=== PATIENT | male | born 1985 | race Caucasian/White ===

== ENCOUNTER 2020-02-12 08:51 | Outpatient (CLI) | payer MEDICARE, OTHER, SELFPAY ==
[2020-02-12 10:06] LABS: Free T4 Free Thyroxine 1.33 ng/mL (0.78-2.19)
[2020-02-14 15:51] LABS: Testosterone Free 59.3 pg/mL (35.0-155.0); Testosterone Total 215 ng/dL (250-1100)
== END 2020-02-12 08:52 | disposition home or self-care (01) ==
PROVIDERS: PCP Family Medicine; Visit Provider Family Medicine
DX: E03.9 Hypothyroidism, unspecified (principal); R79.89 Other specified abnormal findings of blood chemistry
CPT/HCPCS: 36415; 84402; 84403; 84439; 84443

== ENCOUNTER 2020-06-14 14:49 | Outpatient (CLI) | payer MEDICARE, OTHER, SELFPAY ==
--- NOTE | ~2020-06-14 | MR_ITS ---
EXAMINATION: MR cervical spine wo con DATE: 06/14/2020 15:34 INDICATION: Neck pain. TECHNIQUE: Magnetic resonance imaging (MRI) of the cervical spine was performed without intravenous c ontrast. Sequences included sagittal T2-weighted FSE, sagittal STIR FSE, sagittal T1-weighted FSE, ax ial MERGE, and axial T2-weighted FSE. COMPARISON: None FINDINGS: There is mild kyphosis of cervical spine. There is 8 degrees dextrocurvature of cervicothor acic spine. Vertebral body heights are normal. Intervertebral disc heights are normal. The spinal cor d signal intensity is normal. The following disc levels are specifically discussed: C2-C3: The disc does not extend beyond the endplate margin. There is mild left uncovertebral joint os teoarthritis. There is mild bilateral facet joint osteoarthritis. There is mild left neural foraminal stenosis. There is no central canal stenosis. C3-C4: The disc does not extend beyond the endplate margin. There is mild bilateral uncovertebral julián nt osteoarthritis. There is mild bilateral facet joint osteoarthritis. There is mild bilateral neural foraminal stenosis. There is no central canal stenosis. C4-C5: The disc does not extend beyond the endplate margin. There is mild bilateral uncovertebral julián nt osteoarthritis. There is mild right and moderate left facet joint osteoarthritis. There is mild bi lateral neural foraminal stenosis. There is no central canal stenosis. C5-C6: The disc does not extend beyond the endplate margin. There is mild bilateral uncovertebral julián nt osteoarthritis. There is mild bilateral facet joint osteoarthritis. There is no neural foraminal s tenosis. There is no central canal stenosis. C6-C7: There is a central protrusion. There is mild bilateral uncovertebral joint osteoarthritis. The re is mild right and moderate left facet joint osteoarthritis. There is mild bilateral neural foramin al stenosis. There is mild central canal stenosis. C7-T1: The disc does not extend beyond the endplate margin. There is mild bilateral uncovertebral julián nt osteoarthritis. There is moderate bilateral facet joint osteoarthritis. There is mild right neural foraminal stenosis. There is no central canal stenosis. IMPRESSION: 1. Mild cervical spondylosis. Reviewed, dictated and finalized at location A.
== END 2020-06-14 14:50 | disposition home or self-care (01) ==
PROVIDERS: PCP Family Medicine; Visit Provider Nurse Practitioner Family
DX: M25.519 Pain in unspecified shoulder (principal); R20.0 Anesthesia of skin; M47.892 Other spondylosis, cervical region
CPT/HCPCS: 72141

== ENCOUNTER 2022-05-11 08:59 | Outpatient (CLI) | payer MEDICARE, OTHER, SELFPAY ==
[2022-05-11 09:17] LABS: Hematocrit 48.2 % (42.0-52.0); Hemoglobin 15.8 g/dL (14.0-18.0); Mean Corpuscular HGB Conc 32.8 g/dl (32-36); Mean Corpuscular Hemoglobin 26.9 pg (26-34); Mean Corpuscular Volume 82.1 fl (80-100); Mean Platelet Volume 9.7 fl (7.4-10.4); Platelet Count Result 219 k/mm3 (150-375); Red Blood Count 5.87 M/mm3 (4.6-6.20); Red Cell Distribution Width 16.7 % (11.5-14.5); White Blood Count 8.8 K/mm3 (4.5-10.0)
[2022-05-11 09:40] LABS: Anion Gap 9 mmol/L (8-16); Blood Urea Nitrogen 22 mg/dL (9-20); Calcium 9.6 mg/dL (8.4-10.2); Carbon Dioxide 30 mmol/L (22-30); Chloride 101 mmol/L (98-107); Estimated Glomerular Filt Rate > 60; Glucose 89 mg/dL (65-110); Potassium 4.9 mmol/L (3.4-5.0); Sodium 140 mmol/L (137-145)
[2022-05-11 10:25] LABS: Free T4 Free Thyroxine 0.92 ng/mL (0.78-2.19)
[2022-05-15 16:17] LABS: Testosterone Free 128.3 pg/mL (35.0-155.0); Testosterone Total 668 ng/dL (250-1100)
== END 2022-05-11 09:00 | disposition home or self-care (01) ==
LOC: ANHLAB 09:01
PROVIDERS: PCP Family Medicine; Visit Provider Family Medicine
DX: F90.0 Attention-deficit hyperactivity disorder, predominantly inattentive type (principal); R79.89 Other specified abnormal findings of blood chemistry; E03.9 Hypothyroidism, unspecified
CPT/HCPCS: 36415; 80048; 84402; 84403; 84439; 84443; 85027

== ENCOUNTER 2024-10-30 09:27 | Outpatient (CLI) | payer OTHER, SELFPAY ==
--- OUTSIDE RECORDS SUMMARY | 2024-10-30 09:46 | XMS_ITS | Encounter Summary ---
Author Organization [facility] Address 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 [address] PCP - General Family Practice 07/08/20 documented as of this encounter
--- OUTSIDE RECORDS SUMMARY | 2024-10-30 09:46 | XMS_ITS | Clinical Summary ---
Author Organization [facility] Address [address] [place] [address] Care Team Providers Care Cable Systems Installer Name Role Phone Brain Roach MD Primary Care Provider [phone] Allergies Active Allergy Reactions Criticality Noted Date Comments Gabapentin Rash Low 01/25/2017 Medications testosterone (ANDROGEL) 20.25 mg/1.25 gram (1.62 %) Gel in Metered-dose Pump BRISSA 1 PUMP OVER MAX AREA OF EACH UPPER ARM AND SHOULDER D 08/06/2020 Active levothyroxine 150 mcg tablet TK 1 T PO D 06/28/2020 Ac tive amphetamine-dex troamphetamine (ADDERALL XR) 20 mg Extended Release 24 hour capsule TK 1 C PO D 08/15/2020 Active acetaminophen (TYLENOL ORAL) Take by mouth. Active IBUPROFEN ORAL Take by mouth. Active MULTIVITAMIN ORAL Take by mouth. Active Active Problems Problem Noted Date Diagnosed Date Cervical disc disease 08/30/2020 Kyphosis 08/30/2020 Encounters Date Type Department Care Team Description 10/08/2024 External Device Data [facility] ABSTRACTION Provider, Abstract from Last 3 Months Family History Medical History Relation Name Comments Healthy Father Healthy Mother Relation Name Status Comments Father Alive Mother Alive Social History Tobacco Use Types Packs/Day Years Used Date Smoking Tobacco: Never Alcohol Use Standard Drinks/Week Comments Never 0 (1 standard drink = 0.6 oz pur e alcohol) Sex and Gender Information Value Date Recorded Sex Assigned at Not on file 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 Gender Identity Not on file Sexual Orientation Not on file Last Filed Vital Signs Vital Sign Reading Time Taken Comments Blood Pressure - - Pulse - - Temperature - - Respiratory Rate - - Oxygen Saturation - - Inhaled Oxygen Concentration - - Weight 120.2 kg (265 lb) 08/30/2020 3:07 PM SCHEDULE MANAGER Height 185.4 cm (6' 1 ) 08/30/2020 3:07 PM SCHEDULE MANAGER Body Mass Index 34.96 08/30/2020 3:07 PM SCHEDULE MANAGER Plan of Treatment Health Maintenance Due Date Last Done Comments INFLUENZA VACCINE (#1) 2024 2, 08/09/2011, 10/17/2007 DTAP/TDAP/TD VACCINES (3 - T d or Tdap) 12/17/2025 12/18/2015, 10/09/2012 HEPATITIS B VACCINES Completed 07/03/2009, 08/04/2008, 03/26/2004 HPV VACCINES Aged Out No longer eligi ble based on patient's age to complete this topic PNEUMOCOCCAL VACCINE 0-64 YEARS Aged Out No longer eligible b ased on patient's age to complete this topic Insurance MEDICARE PART A AND B [facility] Care Teams Cable Systems Installer Relationship Specialty Start Date End Date Brain Roach MD [address] [place] [address] PCP - General Family Practice 07/08/20
--- OUTSIDE RECORDS SUMMARY | 2024-10-30 09:46 | XMS_ITS | Continuity of Care Document ---
Author Name [facility] Organization [facility] Care Team Providers Care Carboy Filler Name Role Phone [facility] Unavailable Unavailable Problems Combined list of problems from Department of Defense and [facility] Affairs facilities. It does not include entries that were removed or entered in error. Problem Status Onset Date Problem Type Date of Resolution Comments Source Vitamin D deficiency Active 016 Condition [facility] Seizure disorder Active 012 Condition [facility] Traumatic brain injury Active 012 Condition [facility] Allergic rhinitis Active Condition [facility] At risk for psychosocial dysfunction Active Condition Jul 26, 2015 Entered By: LETI CALVO Comment: Telephone Call Veterans Crisis Line [facility] Cervicalgia Active Condition [facility] Chronic back pain Active Condition [facility] Chronic low back pain Active Condition [facility] Chronic post-traumatic stress disorder Active Condition [facility] Deep laceration of foot Active Condition [facility] DISABILITY EXAMINATION Active Condition [facility] Erectile dysfunction Active Condition [facility] Erectile Dysfunction (SCT [id number]) Active Condition [facility] Gynecomastia Active Condition [facility] Gynecomastia Active Condition Jun 02, 2017 Entered By: MAHAMED ALBERTO I Comment: Per Mammogram 2017 Entered By: JOSE MACKEY Comment: 11/08/17 biopsy confirmation [facility] Headache Active Condition [facility] History of alcohol abuse Active Condition [facility] History of traumatic brain injury Active Condition [facility] Homeless Active Condition [facility] Hypothyroidism Active Condition [facility] Insomnia Active Condition [facility] Laceration of ankle Active Condition [facility] 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 Nausea Active Condition [facility] Obstructive sleep apnea syndrome Active Condition Feb 18, 2016 Entered By: DANE HENRY Comment: [id number] H2O Medium Full Face [facility] Recurrent major depressive episodes Active Condition [facility] Relationship distress with spouse or intimate partner Active Condition [facility] Seizure Active Condition [facility] Sleep Apnea (SCT [id number]) Active Condition [facility] Suicidal behavior Active Condition No v 2014 Entered By: LETI CALVO Comment: SDV Via Overdose [facility] Vitamin D deficiency Active Condition [facility] Alcohol dependence Inactive Condition 05/08/2016 [facility] Breast enlargement Inactive Condition 06/02/2017 Jun 02, 2017 Entered By: MAHAMED ALBERTO I Comment: per mamogram Gynomastia 2016 [facility] Cocaine dependence Inactive Condition 05/08/2016 [facility] visit for: services physical Active Condition DoD shoulder strain right Active Condition DoD Other Physical Therapy Active Condition DoD joint pain, localized in the shoulder Active Condition DoD shoulder separation closed acromioclavicular joint Active Condition DoD upper respiratory infection acute Active Condition DoD visit for: screening exam Inactive Condition DoD Need For Prophylactic Antibiotics Active Condition DoD visit for: screening exam pulmonary tuberculosis Active Condition DoD Need For Vaccination Against Influenza Inactive Condition DoD visit for: laboratory Active Condition DoD Need For Vaccination Against Bacterial Diseases Active Condition DoD Need For Vaccination Against DTP Active Condition DoD Need For Vaccination Polio Active Condition DoD visit for: ears / hearing exam Active Condition DoD osteopenia Active Condition Previous goals not metShort Term Goals: Decrease pain to 4/10 with rest x2wks Rule out SPR stress fracture on L with bone scan [id number] Term Goals:RTD x4-6 wks if bone scan negative DoD visit for: screening mental / developmental disorders Inactive Condition DoD chronic pain Active Condition DoD chronic post-traumatic stress disorder Active Condition DoD difficulty breathing (dyspnea) Active Condition Do[facility] Administrative Evaluation Services Inactive Condition DoD Patient Education - Neurological Disorder Active Condition DoD Patient Education - Medication Active Condition DoD visit for: physical medical evaluation board (MEB) Active Condition DoD noncompliance with medical treatment Active Condition DoD adjustment disorder with anxiety Active Condition DoD obesity Active Condition DoD upper respiratory infection Inactive Condition DoD somatic dysfunction of cervical region Active Condition DoD medication overuse headache Active Condition DoD tension-type headache Inactive Condition DoD classic migraine with aura Active Condition DoD overweight Active Condition DoD plantar fasciitis Active Condition DoD anxiety Active Condition DoD nonorganic sleep apnea obstructive Active Condition DoD depression Active Condition DoD alcohol abuse Active Condition DoD visit for: services physical marmolejo-related illness Active Condition DoD nonorganic sleep apnea Active Condition DoD headache syndromes Active Condition DoD psychiatric diagnosis or condition deferred on axis I Active Condition DoD acute peripheral vestibulopathy Active Condition DoD Blood Pressure Isolated Elevated Active Condition DoD depression with anxiety Active Condition DoD vertigo of central origin Active Condition DoD common migraine without aura chronic with intractable migraine Active Condition DoD persistent insomnia Active Condition Do D post-traumatic headache chronic Active Condition DoD routine pre-employment screening examination Active Condition DoD primary insomnia Active Condition DoD adjustment disorder Active Condition Do D anxiety disorder NOS Active Condition DoD headache Inactive Condition DoD assessment of patient condition work status Active Condition DoD Back Muscle Spasm Inactive Condition DoD visit for: issue medical certificate Inactive Condition DoD convulsive disorder Inactive Condition D oD convulsions [as sx] Active Condition Do D ringing in the ears (tinnitus) Active Condition DoD insomnia Active Condition DoD gastroenteritis Inactive Condition DoD visit for: screening exam neurological disorders Inactive Condition DoD visit for: examination of subpopulation Active Condition DoD visit for: screening exam traumatic brain injury Active Condition DoD conditions influencing health status Active Condition DoD migraine headache Active Condition DoD concussion Inactive Condition DoD lower back pain Active Condition DoD classic migraine with acute-onset aura Inactive Condition DoD Occupational Therapy Active Condition DoD visit for: services physical marmolejo-related injury Active Condition DoD aphthous ulcer Active Condition DoD visit for: follow-up exam Active Condition DoD Patient Education - Computer-Assisted Cognitive Skills Prog Active Condition DoD Cognitive Functions Inactive Condition D oD Cognitive Skills - Memory Strategies Active Condition DoD Speech Therapy Active Condition DoD Opticokinetic Nystagmus Absent Active Condition DoD eye sensitivity to light (photophobia) Inactive Condition DoD binocular vision disorder Active Condition DoD paresis of accommodation Active Condition DoD assess patient condition work-related occupational disease Active Condition DoD memory lapses or loss Active Condition DoD no psychiatric diagnosis or condition on axis I Inactive Condition DoD gaze convergence palsy Active Condition DoD brain injury traumatic Active Condition DoD Observation For Suspected Condition Inactive Condition DoD transient alteration of awareness Active Condition DoD Brace Inactive Condition DoD Patient Counseling: Inquiry & Counseling Active Condition DoD epilepsy and recurrent seizures Inactive Condition DoD lumbago Active Condition DoD intervertebral disc degeneration - lumbar Active Condition DoD backache Active Condition DoD visit for: screening exam depression Inactive Condition DoD poor coordination [Sx] Active Condition DoD vertigo Inactive Condition DoD cervicalgia Active Condition DoD dizziness Inactive Condition DoD late effect of intracranial injury Active Condition DoD post-traumatic headache Active Condition DoD concussion with brief loss of consciousness (under 1 hour) Inactive Condition DoD other specified family circumstances Active Condition DoD visit for: occupational health / fitness exam Active Condition DoD adhesive capsulitis of shoulder Active Condition DoD shoulder strain supraspinatus tendon right Active Condition [facility] visit for: administrative purpose Inactive Condition DoD assessment of patient condition work-related Active Condition DoD fainting (syncope) Inactive Condition Do D hypertrophy of breast Inactive Condition DoD patient's noncompliance with therapy Active Condition DoD visit for: screening exam cardiovascular disorders Active Condition EKG within normal limits DoD Medications Combined list of outpatient medications from 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Medications provided include 1) outpatient medications from the last 15 months, and 2) patient-reported medications. Medication Details Route Status Patient Instructions Prescription Expires Prescription Number Last Dispense Date Ordering Provider Order Date Order Qty Source AMPHETAMINE /DEXTROAMPH ETAMINE 20MG TAB TAKE ONE TABLET BY MOUTH EVERY MORNING ORAL ACTIVE LUCERO,AN EELA 2020 [facility] LEVOTHYROXI NE TAB TAKE ACTIVE KRISTINE GALLAGHER [address] [place] [address] TESTOSTERON E GEL,TOP APPLY TO AFFECTED AREA(S) EVERY MORNING TOPICA L ACTIVE LUCERO,AN EELA 2020 [facility] Allergies, Adverse Reactions, Alerts Combined list of allergies from 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 It does not include entries that were removed or entered in error. Substance Category Reaction Severity Reaction type Status Date Reported Comments Source GABAPENTIN Propensity to adverse reactions to drug (finding) active 6 Zenia OCASIO [facility] Gabapentin Drug allergy (disorder) Cramp active 6 [facility] GABAPENTIN Propensity to adverse reactions to drug (finding) Cramp active 6 [facility] GABAPENTIN Propensity to adverse reactions to drug (finding) Eruption active 7 [facility] GABAPENTIN (GABAPENTIN) Drug allergy (disorder) Unknown active 1 [facility] Immunizations Combined list of available immunizations from the 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 Comments Source COVID-19 (PFIZER), MRNA, LNP-S, PF, 30 MCG/0.3 ML DOSE 2 2020 208 complet ed PFR; [id number]; 1 [facility] COVID-19 (PFIZER), MRNA, LNP-S, PF, 30 MCG/0.3 ML DOSE 1 2020 208 complet ed PFR; [id number]; 1 [facility] INFLUENZA, UNSPECIFIED FORMULATION 2018 88 complet ed per patient [facility] INFLUENZA, UNSPECIFIED FORMULATION 2016 88 complet ed [facility] TDAP 2015 115 complet ed [facility] tetanus toxoid, reduced diphtheria toxoid, and acellular pertu is vaccine, adsorbed 1 2012 UNK 115 Unknown (UNK) comple t ed tetanus toxoid, reduced diphtheri a toxoid, and acellular pertussis vaccine, adsorbed DoD Influenza, seasonal, injectable 1 2011 UNK 141 Unknown (UNK) comple t ed Influenza , seasonal, injectabl e DoD typhoid Vi capsular polysaccharid e vaccine 1 2010 UNK 101 Unknown (UNK) comple t ed typhoid Vi capsular polysacch aride vaccine DoD Influenza, seasonal, injectable 1 2010 UNK 141 Unknown (UNK) comple t ed Influenza , seasonal, injectabl e DoD Novel influenza-H1N 1-09, injectable 1 2009 UNK 127 Unknown (UNK) comple t ed Novel influenza -[id number], injectabl e DoD anthrax vaccine 4 2008 [id number] [facility] complet ed anthrax vaccine DoD hepatitis B vaccine, adult dosage 3 2008 UNK 43 Unknown (UNK) comple t ed hepatitis B vaccine, adult dosage DoD hepatitis A vaccine, adult dosage 3 2008 UNK 52 Unknown (UNK) comple t ed hepatitis A vaccine, adult dosage DoD influenza virus vaccine, unspecified formulation 1 2008 UNK 88 Unknown (UNK) comple t ed influenza virus vaccine, unspecifi ed formulati on DoD vaccinia (smallpox) vaccine 1 2007 UNK 75 Unknown (UNK) comple t ed vaccinia (smallpox ) vaccine DoD typhoid Vi capsular polysaccharid e vaccine 1 2007 UNK 101 Unknown (UNK) comple t ed typhoid Vi capsular polysacch aride vaccine DoD hepatitis A and hepatitis B vaccine 2 2007 UNK 104 Unknown (UNK) comple t ed hepatitis A and hepatitis B vaccine DoD anthrax vaccine 3 2007 UNK 24 [employer] [place] ([facility]) complet ed anthrax vaccine DoD influenza virus vaccine, live, attenuated, for intranasal use 1 2007 [id number] Sanofi Pasteur (PMC) complet ed influenza virus vaccine, live, attenuate d, for intranasa l use DoD measles, mumps and rubella virus vaccine 1 2003 [id number] Merck (MSD) complet ed measles, mumps and rubella virus vaccine DoD tetanus and diphtheria toxoids, adsorbed, preservative free, for adult use (2 Lf of tetanus toxoid and 2 Lf of diphtheria toxoid) 1 2003 [id number] Sanofi Pasteur ([facility]) complet ed tetanus and diphtheri a toxoids, adsorbed, preservat bennett free, for adult use (2 Lf of tetanus toxoid and 2 Lf of diphtheri a toxoid) DoD poliovirus vaccine, inactivated 1 2003 [id number] 10 Sanofi Pasteur ([facility]) complet ed polioviru s vaccine, inactivat ed DoD meningococcal polysaccharid e vaccine (MPSV4) 1 2003 [id number] Unknown (UNK) comple t ed meningoco ccal polysacch aride vaccine (MPSV4) DoD hepatitis A and hepatitis B vaccine 1 2003 [id number] Unknown (UNK) complet ed hepatitis A and hepatitis B vaccine DoD anthrax vaccine 2 2003 UNK 24 [employer] [place] ([facility]) complet ed anthrax vaccine DoD anthrax vaccine 1 2003 UNK 24 [employer] ([facility]) complet ed anthrax vaccine DoD Encounters Combined list of: 1) Encounters from Department of Veterans Affairs facilities going backup to the last 18 months, not all VA inpatient encounters are included; 2) Encounters from the Department of Defense facilities going backup to 280 months. Location Location Details Encounter Type Encounter Number Reason For Visit Attending Provider ADM Date DC Date Status Disposition Source Harpalkeenan Lopez LeonLUIS FELIPE Browning(Physic al Therapy [facility]) OUTPATIENT [id number] Follow up for L>R IPR stress rxns (r/o stress fx) DELFIN TORREZ 06/22 Released with Work/Duty Limitations LUIS FELIPE Alvarado(Phys ical Therapy [facility]) [place]) OUTPATIENT [id number] hearing test ZACHARIAH NASSAR 10/14 Released w/o Limitations [place] ) [place]IENT [id number] AMANDO GIBBONS 10/17 Released w/o Limitations [place]) OUTPATIENT [id number] cough, congest ion, sore throat CHARLES MARLOW 10/25 Released with Work/Duty Limitations [place]) [place] OUTPATIENT [id number] coughin g up blood, r. shoulde r HARESH SantanaINALJorge Suazo 11/07 Released with Work/Duty Limitations [place]) [place] OUTPATIENT [id number] F/U shoulde r pain HARESH MARLOWINALD J 11/14 Released with Work/Duty Limitations [place]([facility]) [place]Physic [place]) OUTPATIENT [id number] JUDE Monroe 11/17 Released w/o Limitations [place]Phys ical [place]) OUTPATIENT [id number] R Shoulde r NICANOR Singh 11/19 Released with Work/Duty Limitations [place]Phys ical [place]) OUTPATIENT [id number] R Shoulde r class NICANOR WILCOX R 11/24 Released with Work/Duty Limitations [place]Phys ical [place] ) [place]) OUTPATIENT [id number] Exercis e R Shoulde r BRENDEN NICANOR R 11/26 Released with Work/Duty Limitations [place]Phys ical [place] ([facility])) OUTPATIENT [id number] FELL INJURY TO RIGHT MELINA HENLEY 11/26 Released with Work/Duty Limitations [place] ([facility])) [place]Physic [place]) OUTPATIENT [id number] R JUDE Moreno 11/27 Released w/o Limitations [place](Phys ical [place] ) [place]Phys[place]) OUTPATIENT [id number] LEE HYDE 12/01 Released with Work/Duty Limitations [place]Phys ical [place]) OUTPATIENT [id number] Exercis e R SHoulde r NICANOR WILCOX R 12/02 Released with Work/Duty Limitations [place](Phys ical [place] ) [place]) OUTPATIENT [id number] Exercis e R Shoulde r BRENDEN NICANOR R 12/03 Released with Work/Duty Limitations [place](Phys ical Therapy ) [place]) OUTPATIENT [id number] 18X and LILLY Davila 12/04 Released w/o Limitations [place]([facility]) [place]Physic [place] Therapy) OUTPATIENT [id number] Exercis e r Shoulde r [facility] 12/08 Released w/o Limitations [facility], John Karan , [place]IG[place](Phys ical Therapy ) John Alfredo, PAIGE(Anthropology Department Chair al Med Angel) OUTPATIENT [id number] BEULAH Galarza Katrin 12/08 Released w/o Limitations [facility], [place] Russo , [place](Inte rnal Med [place]) John Alfredoning, [place](Physic al Therapy) OUTPATIENT [id number] Exercis e R NICANOR Velasquez 12/10 Released with Work/Duty Limitations [facility], John Russo , [place](Phys ical Therapy ) [facility] Karan, [place](Physic al Therapy) OUTPATIENT [id number] f/u JUDE Moreno 12/15 Released w/o Limitations [facility], John Russo , [place](Phys ical Therapy ) [facility], [place](Physic al Therapy) OUTPATIENT [id number] LEE HYDE 12/24 Released with Work/Duty Limitations [facility] , [place](Phys ical Therapy ) [facility], [place](Physic al Therapy) OUTPATIENT [id number] R JUDE Moreno 02/02 Released w/o Limitations [facility] , [place](Phys ical Therapy ) John Alfredo, [place](C-7) OUTPATIENT [id number] 18 X PART II CHARLES MARLOW 02/02 Released w/o Limitations [facility] , [place]([facility]) [facility], [place]([facility]) OUTPATIENT [id number] 2ND PART SF PHYSICA L KASHMIR CHARLES J 02/12 Released w/o Limitations [facility] , [place](C- 7) [employer] ([facility] M[facility]D RH [facility]ou) OUTPATIENT [id number] right shoulde r GERARDO Magallanes 06/18 Released with Work/Duty Limitations [employer] ([facility])(AM H M04D RH Fou) [employer] ([facility])([facility], Physical Therapy) TELE CONSULT [id number] no-show NINOSKA FOLEY 07/16 [employer] ([facility])([facility], Physica l Therapy ) Theater Facility OUTPATIENT [id number] 11/21 Released w/o Limitations Theater Facilit y Theater Facility OUTPATIENT [id number] 05/21 Released w/o Limitations Theater Facilit y [employer] ([facility] OUTPATIENT [id number] negativ e screen EULA ROBERTSONKEKE Bravo 08/03 Released w/o Limitations [employer] ([facility])([facility] [employer] ([facility])([address]) OUTPATIENT [id number] Right shoulde r injury/ pain SUBHASH STANTON Gurpreet 08/26 Released with Work/Duty Limitations [employer] ([facility])(AM [address]) [employer] ([facility])([facility] ly Medicine T-Con) TELE CONSULT [id number] MRI results FARZANEH WILSON 09/27 [employer] ([facility])( popeye Medicin e T-Con) [employer] ([facility])([address]) TELE CONSULT [id number] [facility] e Line-MR I results SUBHASH STANTON 09/27 [employer] ([facility])(AM H [address]) [employer] ([facility])([address]) OUTPATIENT [id number] R/ SHOULDE R INJURY MARLENA SEVILLA H 09/28 Released w/o Limitations [employer] ([facility])([facility] [address]) [employer] ([facility])([facility] Sports Medicine) OUTPATIENT [id number] SHOULDE R SPRAIN SUPRASP INATUS TENDON RIGHT ROSENDO GOLDEN 10/12 Released w/o Limitations [employer] ([facility])([facility] Sports Medicin e) [employer] ([facility])(Phys Therapy) OUTPATIENT [id number] TASHIA BROWNE 10/20 Released with Work/Duty Limitations [employer] ([facility])(Ph ys Therapy ) [employer] ([facility])([facility], Physical Therapy) OUTPATIENT [id number] BELIA FITZPATRICK 10/25 Released with Work/Duty Limitations [employer] ([facility])([facility], Physica l Therapy ) [employer] ([facility])([facility], Physical Therapy) TELE CONSULT [id number] noncomp liance with physica l therapy EFRAÍN CHAVEZ 10/27 [employer] ([facility])([facility], Physica l Therapy ) [employer] ([facility])([facility], Physical Therapy) OUTPATIENT [id number] EFRAÍN CHAVEZ 11/02 Released with Work/Duty Limitations [employer] ([facility])([facility], Physica l Therapy ) [employer] ([facility])([facility], Physical Therapy) OUTPATIENT [id number] BELIA FITZPATRICK 11/05 Released with Work/Duty Limitations [employer] ([facility])([facility], Physica l Therapy ) [employer] ([facility])([facility], Physical Therapy) OUTPATIENT [id number] LENIN JAQUEZ 11/08 Released with Work/Duty Limitations [employer] ([facility])([facility], Physica l Therapy ) [employer] ([facility])([facility] [address]) OUTPATIENT [id number] ABELINO Krueger 11/09 Released w/o Limitations [employer] ([facility])(He aring [facility] [address]) [employer] ([facility])([facility], Physical Therapy) OUTPATIENT [id number] EFRAÍN CHAVEZ 11/10 Released with Work/Duty Limitations [employer] ([facility])([facility], Physica l Therapy ) [employer] ([facility])([facility] Sports Medicine) OUTPATIENT [id number] F/U ROSENDO GOLDEN 11/23 Released w/o Limitations [employer] ([facility])([facility] Sports Medicin e) [employer] ([facility])([facility], Physical Therapy) TELE CONSULT [id number] No show BAI TERESA 12/14 [employer] ([facility])([facility], Physica l Therapy ) [employer] ([facility])([facility], Physical Therapy) OUTPATIENT [id number] Shoulde ABI Mendez 12/21 Released w/o Limitations [employer] [facility] ([facility])([facility], Physica l Therapy ) [facility] ([facility])([facility], Physical Therapy) OUTPATIENT [id number] KAMRONAB LENIN JAQUEZ 12/22 Released with Work/Duty Limitations [employer] ([facility])([facility], Physica l Therapy ) [place] ([facility])([facility], Physical Therapy) OUTPATIENT [id number] EFRAÍN CHAVEZ 12/23 Released with Work/Duty Limitations [place] ([facility])([facility], Physica l Therapy ) [place] ([facility])([facility], Physical Therapy) OUTPATIENT [id number] EFRAÍN CHAVEZ 12/28 Released with Work/Duty Limitations [place] ([facility])([facility], Physica l Therapy ) [place] ([facility])([facility], Physical Therapy) TELE CONSULT [id number] noncomp liance with physica l therapy EFRAÍN CHAVEZ 12/30 [place] ([facility])([facility], Physica l Therapy ) [place] ([facility])([facility], Physical Therapy) TELE CONSULT [id number] CATHY Moeller 12/31 [place] ([facility])([facility], Physica l Therapy ) [place] ([facility])(Phys Exam) OUTPATIENT [id number] THANIA Valadez 01/04 Released w/o Limitations [place] ([facility])(Ph ys Exam) [place] ([facility])(Opto metry) OUTPATIENT [id number] EL CASEYESPERANZA ROSS 01/04 Released w/o Limitations [place] ([facility])(Op tometry ) [place] ([facility])([facility]) TELE CONSULT [id number] Schedul e a FAP appt PEDRO ESPERANZA M 06/28 Referred for Appointment [place] ([facility])(Fa m Advoc-[facility]) [place] ([facility])(Conc ussion Care Clinic) OUTPATIENT [id number] angela-co ALIYAH Eugene 06/22 Sick at Home/Quarter s [place] ([facility])(Co ncuss n Care Clinic) [place] ([facility])([facility] ussion Care Clinic) OUTPATIENT [id number] f/u per LCDR ALIYAH Arreguin 06/27 Sick at Home/Quarter s [place] ([facility])(Co ncuss n Care Clinic) [place] ([facility])([facility] ussion Care Clinic) OUTPATIENT [id number] f/u tbi a ALIYAH DOMÍNGUEZ 06/29 Released with Work/Duty Limitations [place] ([facility])(Co ncussio n Care Clinic) [place] ([facility])(Neur o-Rehab Physical Therapy) OUTPATIENT [id number] SWATHI Valenzuela 06/29 Released with Work/Duty Limitations [place] ([facility])(Ne u[facility]-[place] [facility] Physica l Therapy ) [place] ([facility])(Neur o-Rehab Physical Therapy) OUTPATIENT [id number] f/u tbi p SWATHI DIAZ 07/03 Released with Work/Duty Limitations [place] ([facility])(Ne u[facility]-[place] [facility] Physica l Therapy ) [place] ([facility])([facility] M[facility]) OUTPATIENT [id number] referra l to pain managem RAFIA Haney 07/04 Released w/o Limitations [place] ([facility])([facility] M[facility] One) [place] ([facility])(Conc ussion Care Clinic) OUTPATIENT [id number] f/u tbi a ALIYAH DOMÍNGUEZ 07/10 Released with Work/Duty Limitations [place] ([facility])(Co ncussio n [facility]) [facility] ([facility])(Case Managemen t Non-GWOT) OUTPATIENT [id number] Case Managem ent NASH GEORGE 07/12 Released w/o Limitations [employer] ([facility])(Ca se Managem ent Non-GWO T) [place] ([facility])(Conc ussion Care Clinic) OUTPATIENT [id number] Medicat ion reactio n ALIYAH DOMÍNGUEZ 07/13 Released with Work/Duty Limitations [place] ([facility])(Co nyuss n [facility]) [place] ([facility])(Hear ing Cons [address]) OUTPATIENT [id number] annual VIKTORIYA BAI 07/14 Released w/o Limitations [employer] ([facility])(He aring Cons [address]) [place] ([facility])(Pain Managemen t) OUTPATIENT [id number] [place] BEULAH MARADIAGA PT 07/18 Released w/o Limitations [employer] ([facility])(Pa in Managem ent) [place] ([facility])([facility], Physical Therapy) OUTPATIENT [id number] BACKGABRIELA GOMEZ 07/19 Released with Work/Duty Limitations [place] ([facility])([facility], Physica l Therapy ) [place] ([facility])(Conc ussion [facility]) OUTPATIENT [id number] f/u tbi ALIYAH Mcgrath 07/19 Released w/o Limitations [place] ([facility])(Co ncuss n [facility]) [facility] DIRECT TO MTF FROM OTHER THAN ER OR APU [id number] KAVYA WATKINS 07/20 RETURNED TO [facility] ([facility])(Rebecca gency Room) OUTPATIENT [id number] RENE FLORES 07/20 Admitted [place] ([facility])(Em ergency Room) [place] ([facility])(Neur ology Clinic) INPATIENT [id number] EEG OSMANY MCMULLEN Gabriele 07/21 Inpatient- Still a Patient [facility] ([facility])(Ne urology Clinic) [place] ([facility])(Conc ussion [facility]) OUTPATIENT [id number] f/u tbi a ALIYAH ODMÍNGUEZ Shelly 07/24 Released with Work/Duty Limitations [employer] ([facility])(Co ncussio [facility]) [place] ([facility])(Intr epid Clinic) OUTPATIENT [id number] LUIS Gómez 07/25 Released w/o Limitations [place] ([facility])(In trepid Clinic) [place] ([facility])(Orth opedics) OUTPATIENT [id number] KLM/ 2 BEULAH BAUTISTA 07/25 Released w/o Limitations [place] ([facility])(Or thopedi cs) [place] ([facility])([facility], Physical Therapy) OUTPATIENT [id number] GABRIELA WOODS 08/01 Released with Work/Duty Limitations [place] ([facility])([facility], Physica l Therapy ) [place] ([facility])(Neur ology Clinic) OUTPATIENT [id number] f/u eeg OSMANY MCMULLEN 08/01 Released w/o Limitations [place] ([facility])(Ne urology Clinic) [place] ([facility])(Pain Managemen t) OUTPATIENT [id number] f/u BEULAH JAIME 08/01 Released w/o Limitations [place] ([facility])(Pa in Managem ent) [place] ([facility])(Neur o-Rehab Neuropsyc hology) OUTPATIENT [id number] SCAR Rojas 08/02 Released w/o Limitations [place] ([facility])(Ne u[facility]-[place] Neurops ycholog y) [place] ([facility])(Neur o-Rehab Occ Therapy) OUTPATIENT [id number] [facility] PETTY MARTINEZUEL 08/02 Released w/o Limitations [place] ([facility])(Ne u[facility]-[place] [facility] Occ Therapy ) [place] ([facility])(Neur o-Rehab Physical Therapy) OUTPATIENT [id number] SWATHI Lowe 08/02 Released with Work/Duty Limitations [place] ([facility])([facility] [facility] Physica l Therapy ) [facility] ([facility])(Case Managemen t Non-GWOT) OUTPATIENT [id number] [facility] TBI Clinin Multi D Meeting NASH GEORGE 08/09 Released w/o Limitations [place] ([facility])(Ca se Managem ent Non-GWO T) [place] ([facility])([facility] OUTPATIENT [id number] f/u tbi a [facility] f/u ALIYAH DOMÍNGUEZ 08/09 Released w/o Limitations [place] ([facility])([facility] [place] ([facility])([facility]3]) TELE CONSULT [id number] Patient called and has a few questio ns. Please call. ALIYAH DOMÍNGUEZ 08/14 [place] ([facility])([facility] [place] ([facility])(Neur o-Rehab Occ Therapy) OUTPATIENT [id number] f/u tbi o November,ISE A 08/15 Released w/o Limitations [place] ([facility])(Ne u[facility]-[place] [facility] Occ Therapy ) [place] ([facility])([facility], Physical Therapy) OUTPATIENT [id number] KRISTINE GABRIEL 08/15 Released w/o Limitations [place] ([facility])([facility], Physica l Therapy ) [place] ([facility])([facility], Physical Therapy) TELE CONSULT [id number] no show KRISTINE GABRIEL 08/18 Referred for Appointment [place] ([facility])([facility], Physica l Therapy ) [place] ([facility])(Pain Managemen t) OUTPATIENT [id number] INGRID L5-S1 BEULAH JAIME 08/18 Released w/o Limitations [place] ([facility])(Pa in Managem ent) [place] ([facility])(Neur o-Rehab Speech Pathology ) OUTPATIENT [id number] EDMOND Lozano 08/22 Released w/o Limitations [place] ([facility])(Ne u[facility]-[place] [facility] Speech Patholo gy) [place] ([facility])([facility], Physical Therapy) OUTPATIENT [id number] KRISTINE GABRIEL 08/22 Released w/o Limitations [place] ([facility])([facility], Physica l Therapy ) [place] ([facility])([facility], Physical Therapy) TELE CONSULT [id number] no KRISTINE Panchal 08/25 Referred for Appointment [place] ([facility])([facility], Physica l Therapy ) [place] ([facility])(Opto metry) OUTPATIENT [id number] TBI SANDEEP ATKINS 08/25 Released w/o Limitations [employer] ([facility])(Op tometry ) [place] ([facility])(Neur o-Rehab Speech Pathology ) OUTPATIENT [id number] f/u tbi s EDMOND GONG 09/04 Released w/o Limitations [place] ([facility])(Ne u[facility]-[place] [facility] Speech Patholo gy) [place] ([facility])(Case Managemen t Non-GWOT) OUTPATIENT [id number] [facility] TBI Clinic Multi D Meeting NASH GEORGE 09/05 Released w/o Limitations [place] ([facility])(Ca se Managem ent Non-GWO T) [place] ([facility])(Neur o-Rehab Speech Pathology ) OUTPATIENT [id number] f/u tbi s EDMOND GONG 09/07 Released w/o Limitations [place] ([facility])(Ne u[facility]-[place] [facility] Speech Patholo gy) [place] ([facility])(Case Managemen t Non-GWOT) OUTPATIENT [id number] Multi D Meeting JAMIE KOLBY M 09/13 Released w/o Limitations [place] ([facility])(Ca se Managem ent Non-GWO T) [place] ([facility])(Opto metry) OUTPATIENT [id number] TBI F/U SANDEEP ATKINS 09/14 Released w/o Limitations [place] ([facility])(Op tometry ) [facility] [place] ) OUTPATIENT [id number] mouth problem s CHASIDY MARTINEZ 10/05 Released w/o Limitations [facility] [place]([facility]) [place] ([facility])(Neur o-Rehab Occ Therapy) OUTPATIENT [id number] f/u tbi o BAKARI LEDBTETER A 10/19 Released w/o Limitations [place] ([facility])(Ne u[facility]-[place] [facility] Occ Therapy ) [place] ([facility])(Neur o-Rehab Occ Therapy) OUTPATIENT [id number] f/u tbi o November, A 10/26 Released w/o Limitations [place] ([facility])(Ne u[facility]-[place] [facility] Occ Therapy ) [place] ([facility])(Neur o-Rehab Occ Therapy) OUTPATIENT [id number] f/u tbi o November, A 11/02 Released w/o Limitations [place] ([facility])(Ne u[facility]-[place] [facility] Occ Therapy ) [place] ([facility])(Neur o-Rehab Occ Therapy) OUTPATIENT [id number] f/u tbi o November, A 11/09 Released w/o Limitations [place] ([facility])(Ne uro-[place] [facility] Occ Therapy ) [place] ([facility])(Case Managemen t Non-GWOT) OUTPATIENT [id number] CM NASH Ortiz Released w/o Limitations [employer] ([facility])(Ca se Managem ent Non-GWO T) Theater Facility OUTPATIENT [id number] 12/26 Released w/o Limitations Theater Fac[facility] y Theater Facility OUTPATIENT [id number] 01/17 Sick at Home/Quarter s [facility] Theater Facility OUTPATIENT [id number] 01/22 Sick at Home/Quarter s [facility] Theater Facility OUTPATIENT [id number] 01/23 Released w/o Limitations Theater Facilit y Theater Facility OUTPATIENT [id number] 01/25 Released w/o Limitations Theater Facilit y Theater Facility OUTPATIENT [id number] 01/26 Released w/o Limitations Theater Facilit y [facility] [facility] TBI Screening Neurology ) OUTPATIENT [id number] OND/OEF /YAHIR Concuss ion Screeni NGA Sc[facility] 01/28 [facility] w/o Limitations [facility] Screeni ng Neurolo gy) [facility]) OUTPATIENT [id number] Notes Entered by: BO GARCIA 29 Jan 2012 0842 ------- ------- ------- ------- -- New Patient MARIAH MARSHALL 01/28 [facility]ased w/o Limitations [facility] Endurin g [facility]) [facility] Neurology ) OUTPATIENT [id number] seizure , headach es/OND ANDREAS WELSH 01/30 Released w/o Limitations [facility]rol[facility]) [facility] End[facility]) OUTPATIENT [id number] Notes Entered by: BO GARCIA 31 Jan 2012 1430 ------- ------- ------- ------- -- New Patient -TCC MARIAH MARSHALL 01/30 [facility]ased w/o Limitations [facility] Endurin g [facility]) Theater Facility OUTPATIENT [id number] 02/02 Theater Facilit y Theater Facility OUTPATIENT [id number] 02/03 Theater Facilit y Theater Facility OUTPATIENT [id number] 02/04 Theater Facilit y Theater Facility OUTPATIENT [id number] 02/05 Theater Facilit y [place] ([facility])(Case Managemen t Non-GWOT) OUTPATIENT [id number] Notes Entered by: Davide PONCE V 07 Feb 2012 0952 ------- ------- ------- ------- -- AE Case Managem ent Review of AE Treatme nt Plan JENNIFER PONCE V 02/06 Released w/o Limitations [employer] ([facility])(Ca se Managem ent Non-GWO T) [employer] ([facility])(Rebecca gency Room) OUTPATIENT [id number] KENDAL MARTINEZ 02/07 Released w/o Limitations [employer] ([facility])(Em ergency Room) [place] ([facility])(Case Managemen t Non-GWOT) OUTPATIENT [id number] CM assist -contac t KEVIN JAMES 02/07 Released w/o Limitations [employer] ([facility])(Ca se Managem ent Non-GWO T) [place] ([facility])(Conc ussion Care Clinic) OUTPATIENT [id number] FARNAZ Navarrete 02/07 Released with Work/Duty Limitations [employer] ([facility])(Co [facility] Clinic) [employer] ([facility])(Case Managemen t Non-GWOT) OUTPATIENT [id number] Notes Entered by: WILNER GARCIA 16 Feb 2012 1329 ------- ------- ------- ------- -- Case Managem ent WILNER GARCAI 02/15 Released w/o Limitations [employer] ([facility])(Ca se Managem ent Non-GWO T) [employer] ([facility])(Case Managemen t Non-GWOT) OUTPATIENT [id number] Notes Entered by: WILNER GARCIA 19 Feb 2012 0825 ------- ------- ------- ------- -- Case Managme nt F/u WILNER GRACIA 02/18 Released w/o Limitations [place] ([facility])(Ca se Managem ent Non-GWO T) [place] ([facility])([facility] M[facility] One) OUTPATIENT [id number] ANANT PERALTA 02/21 Released w/o Limitations [place] ([facility])([facility] H M04A [facility] One) [place] ([facility])(Conc ussion Care Clinic) TELE CONSULT [id number] Pt needs profile update. Unit trying to make him jump arabella. Please call. FARNAZ PATINO 02/27 [place] ([facility])([facility]) [place] ([facility])(Neur ology Clinic) OUTPATIENT [id number] insomni OSMANY Velazquez 03/04 Released w/o Limitations [place] ([facility])(In urology Clinic) [place] ([facility])(Rebecca gency Room) OUTPATIENT [id number] KENDAL MARTINEZ 03/05 Released w/o Limitations [place] ([facility])(Em ergency Room) [place] ([facility])([facility] ussion Care Clinic) OUTPATIENT [id number] f/u tbi a - migrain e ALIYAH DOMÍNGUEZ 03/05 Sick at Home/Quarter s [place] ([facility])([facility]) [place] ([facility])([facility] ussion [facility]) OUTPATIENT [id number] f/u tbi a FARNAZ PATINO 03/12 Released with Work/Duty Limitations [place] ([facility])([facility]) [place] ([facility])(Pain Managemen t) OUTPATIENT [id number] F/U appt BEULAH JAIME 03/12 Released w/o Limitations [place] ([facility])(Pa in Managem ent) [place] ([facility])(Rebecca gency Room) OUTPATIENT [id number] KENDAL MARTINEZ 03/25 Released w/o Limitations [place] ([facility])(Em ergency Room) [place] ([facility])(Case Managemen t Non-GWOT) OUTPATIENT [id number] Notes Entered by: WILNER GARCIA 02 Apr 2012 1037 ------- ------- ------- ------- -- Case managem ent f/u WILNER GARCIA 04/02 Released w/o Limitations [place] ([facility])(Ca se Managem ent Non-GWO T) [place] ([facility])([facility] ussion Care Clinic) OUTPATIENT [id number] f/u tbi a FARNAZ PATINO 04/03 Released w/o Limitations [place] ([facility])(Co [facility]) [facility] ([facility])([facility] One) OUTPATIENT [id number] Notes Entered by: RUFUS GREEN 15 Apr 2012 0831 ------- ------- ------- ------- -- Migrane ELLIS RUFUS GREEN 04/15 Sick at Home/Quarter s [place] ([facility])([facility] M[facility] One) [place] ([facility])([facility] OUT[facility] [id number] SVETA Redding 04/17 Released w/o Limitations [place] ([facility])(Co [facility]) [facility] ([facility])(Rebecca gency Room) OUTPATIENT [id number] RAFIA TRINIDAD 04/22 Released w/o Limitations [place] ([facility])(Em ergency Room) [place] ([facility])(Hear ing Cons [address]) OUTPATIENT [id number] post-MIKE Sousa 04/23 Released w/o Limitations [place] ([facility])(He aring Cons [address]) [facility] ([facility])(Clar k Hearing Conservat ion) OUTPATIENT [id number] Full Audio /TBI phone CHEN CARROLL 04/25 Released w/o Limitations [place] ([facility])(Cl ark Hearing Conserv ation) [facility] ([facility] TELE CONSULT [id number] Notes Entered by: EDNA DAMON 29 Apr 2012800 ------- ------- ------- ------- -- Pt was told by Shelley he needed a sleep study, but no referra l was put in. FARNAZ PATINO 04/29 [place] ([facility])([facility] [place] ([facility] [employer])(Opto metry) OUTPATIENT [id number] re-SANDEEP Goel 04/29 Released w/o Limitations [employer] ([facility] [employer])(Op tometry ) [place] ([facility])(Neur o-Rehab Physical Therapy) OUTPATIENT [id number] SWATHI Lowe 04/30 Released with Work/Duty Limitations [place] ([facility])(Ne u[facility]-[place] [facility] Physica l Therapy ) [facility] ([facility])(Rebecca gency Room) OUTPATIENT [id number] KENDAL MARTINEZ 05/01 Released w/o Limitations [place] ([facility])(Em ergency Room) [facility] ([facility])([facility] One) OUTPATIENT [id number] MIGRAIN E POST TBI MARCOS LANDIN 05/01 Released w/o Limitations [place] ([facility])([facility] M[facility] One) [facility] [place] ([facility])(Neur o-Rehab Physical Therapy) OUTPATIENT [id number] f/u tbi p SWATHI DIAZ 05/02 Released with Work/Duty Limitations [place] ([facility])(Ne u[facility]-[place] [facility] Physica l Therapy ) [facility] ([facility])(Neur o-Rehab Physical Therapy) OUTPATIENT [id number] f/u tbi p KRYSTYNA OWENS 05/07 Released w/o Limitations [place] ([facility])(Ne u[facility]-[place] [facility] Physica l Therapy ) [facility] ([facility])(Conc ussion Care Clinic) OUTPATIENT [id number] f/u ccc FARNAZ PATINO 05/07 Released with Work/Duty Limitations [employer] ([facility])(Co [facility]) [facility] ([facility])(Case Managemen t Non-GWOT) OUTPATIENT [id number] Notes Entered by: WILNER GARCIA 08 May 2012 1126 ------- ------- ------- ------- -- Case Managem ent WILNER Mireles 05/08 Released w/o Limitations [employer] ([facility])(Ca se Managem ent Non-GWO T) [facility] ([facility])(Rebecca gency Room) OUTPATIENT [id number] RAFIA TRINIDAD 05/09 Released w/o Limitations [employer] ([facility])(Em ergency Room) [facility] ([facility])(Pain Managemen t) OUTPATIENT [id number] INGRID L5-S1 BEULAH JAIME 05/13 Released w/o Limitations [facility] ([facility])(Pa in Managem ent) [facility] ([facility])(Neur o-Rehab Case Managemen t) OUTPATIENT [id number] [facility] Concuss ion Care Clinic Case Managem ent NASH GEORGE 05/16 Released w/o Limitations [facility] ([facility])(Ne uro-[place] ab Case Managem ent) [facility] ([facility])(Neur o-Rehab Occ Therapy) OUTPATIENT [id number] PETTY Perez 05/21 Released w/o Limitations [facility] ([facility])(Ne uro-[place] [facility] Occ Therapy ) [facility] [place] ([facility])(Neur o-Rehab Neuropsyc hology) OUTPATIENT [id number] LILLIAN Zambrano 05/21 Released w/o Limitations [facility] ([facility])(Ne uro-[place] ab Neurops ycholog y) [facility] ([facility])(Neur o-Rehab Case Managemen t) OUTPATIENT [id number] [facility] ion Care Clinic Multidi sciplin darien Meeting NASH GEORGE 05/21 Released w/o Limitations [facility] ([facility])(Ne uro-[place] ab Case Managem ent) [facility] ([facility])(Opto metry) OUTPATIENT [id number] Notes Entered by: Shelly ATKINS 22 May 2012 1226 ------- ------- ------- ------- -- tbi multid meeting SANDEEP ATKINS 05/22 Released w/o Limitations [facility] ([facility])(Op tometry ) [facility] ([facility])(Conc ussion Care Clinic) OUTPATIENT [id number] f/u tbi case review FARNAZ PATINO 05/22 Released with Work/Duty Limitations [employer] ([facility])(Co ncuss n Care Clinic) [facility] ([facility])(Rebecca gency Room) OUTPATIENT [id number] KENDAL MARTINEZ 05/28 Released w/o Limitations [facility] ([facility])(Em ergency Room) [facility] ([facility])(Neur o-Rehab Occ Therapy) OUTPATIENT [id number] F/U TBI O ELIEZER MOORE 06/06 Released w/o Limitations [facility] ([facility])(Ne uro-[place] ab Occ Therapy ) [facility] ([facility])(Neur o-Rehab Occ Therapy) OUTPATIENT [id number] f/u tbi o ALEK CASTANEDA 06/18 Released w/o Limitations [employer] ([facility])(Ne uro-[place] [facility] Occ Therapy ) [facility] [facility] ([facility])(Pain Managemen t) OUTPATIENT [id number] F/U AFTER BEULAH HOLBROOK 06/19 Released w/o Limitations [facility] ([facility])(Pa in Managem ent) [facility] ([facility])([facility]3]) OUTPATIENT [id number] Notes Entered by: FARNAZ PATINO 19 Jun 2012 1424 ------- ------- ------- ------- -- [facility] Multidi sciplin darien Team Case Review FARNAZ PATINO 06/19 Released with Work/Duty Limitations [employer] ([facility])([facility] [place] ([facility])(Neur o-Rehab Occ Therapy) OUTPATIENT [id number] f/u tbi o November, A 06/20 Released w/o Limitations [employer] ([facility])(Ne uro-[place] [facility] Occ Therapy ) [facility] ([facility])([facility]3]) OUTPATIENT [id number] f/u tbi a FARNAZ PATINO 06/25 Released w/o Limitations [employer] [place] ([facility])([facility] [place] ([facility])(Neur o-Rehab Occ Therapy) OUTPATIENT [id number] f/u tbi o November, A 06/26 Released w/o Limitations [employer] [place] ([facility])(Ne uro-[place] [facility] Occ Therapy ) [facility] ([facility])(Neur o-Rehab Occ Therapy) OUTPATIENT [id number] f/u tbi o November, A 06/27 Released w/o Limitations [employer] [place] ([facility])(Ne uro-[place] [facility] Occ Therapy ) [facility] ([facility])(Pain Managemen t) OUTPATIENT [id number] Bilat Occ Nerve Block SHIRA LEONE 07/01 Released w/o Limitations [employer] [place] ([facility])(Pa in Managem ent) [facility] [facility] ([facility])(Neur o-Rehab Occ Therapy) OUTPATIENT [id number] f/u tbi o November, A 07/02 Released w/o Limitations [facility] [place] ([facility])(Ne u[facility]-[place] [facility] Occ Therapy ) [facility] ([facility])(Slee p Study Lab) OUTPATIENT [id number] SLEEP STUDY LUCY ALIYAH Espinal 07/04 Released w/o Limitations [facility] [facility] ([facility])(Sl eep Study Lab) [facility] ([facility])([facility] One) OUTPATIENT [id number] Notes Entered by: ZAHRA GRUBBS 05 Jul 2012 0706 ------- ------- ------- ------- -- HEADACH ES/ SCAR [place] 07/05 Sick at Home/Quarter s [facility] ([facility])([facility] M[facility] One) [facility] ([facility])(Neur o-Rehab Occ Therapy) OUTPATIENT [id number] f/u tbi o November, A 07/09 Released w/o Limitations [employer] [place] ([facility])(Ne uro-[place] ab Occ Therapy ) [facility] ([facility])(Neur o-Rehab Occ Therapy) OUTPATIENT [id number] f/u tbi o November, A 07/11 Released w/o Limitations [facility]Ne [facility]-[place] [facility] ) [facility]) OUTPATIENT [id number] Notes Entered by: FARNAZ PATINO 18 Jul 2012 1138 ------- ------- ------- ------- -- [facility] darien Team Case Review FARNAZ PATINO 07/18 Released w/o Limitations [facility]) [facility]Neur [facility]-Rehab Occ Therapy) OUTPATIENT [id number] pedrito-ELIEZER Ham 07/22 Released w/o Limitations [facility] ([facility])([facility] ) [place] ([facility]) OUTPATIENT [id number] f/u tbi a FARNAZ PATINO 07/24 Released w/o Limitations [place] ([facility])([facility] [place] ([facility])([id number] One) OUTPATIENT [id number] TISHA WALTER 07/25 Released w/o Limitations [place] ([facility])([facility] One) [place] ([facility])([id number] One) OUTPATIENT [id number] TISHA WALTER 07/30 Released w/o Limitations [place] ([facility])([facility] One) [place] ([facility])(Pain Managemen t) OUTPATIENT [id number] MBNB right L4,L5.ANCA Garcia 07/31 Sick at Home/Quarter s [place] ([facility])(Pa in Managem ent) [place] ([facility])([address] One) TELE CONSULT [id number] Notes Entered by: TISHA DUNCAN 13 Aug 2012 0818 ------- ------- ------- ------- -- consult TISHA WALTER 08/13 [place] ([facility])([facility] One) [place] ([facility])(Neur ology Clinic) OUTPATIENT [id number] ABDULLAHI Howe 08/19 Released w/o Limitations [place] ([facility])(Ne urology Clinic) [place] ([facility])(Pulm onology Disease Cl) OUTPATIENT [id number] f/u sleep study ALIYAH YAALA 08/22 Released w/o Limitations [place] ([facility])([facility]) [place] ([facility])(Neur [facility]y Clinic) OUTPATIENT [id number] ABDULLAHI Leong 08/27 Released w/o Limitations [place] ([facility])(Ne urology Clinic) [place] ([facility])(Pulm onology Disease Cl) OUTPATIENT [id number] visit for: adminis trative purpose /cpap follow up ALIYAH AYALA 10/10 Released w/o Limitations [place] ([facility])([facility]) [place] ([facility])([facility]) TELE CONSULT [id number] Notes Entered by: TISHA DUNCAN 10 Oct 2012 1508 ------- ------- ------- ------- -- Pain consult TISHA WALTER 10/10 [place] ([facility])([facility] One) [place] ([facility])(Neur [facility]logy Clinic) OUTPATIENT [id number] f/u ABDULLAHI REYNOLDS 10/21 Released w/o Limitations [place] ([facility])(In urology Clinic) [place] ([facility])([address]) OUTPATIENT [id number] medicat ion TISHA WALTER 11/25 Released w/o Limitations [place] ([facility])([facility] One) [place] ([facility])(Orth opedics) OUTPATIENT [id number] SCAR MENARD 12/18 Released w/o Limitations [place] ([facility])(Or thopedi cs) [place] ([facility])(Neur [facility]logy Clinic) OUTPATIENT [id number] f/u ABDULLAHI REYNOLDS 12/19 Released w/o Limitations [place] ([facility])(Ne urology Clinic) [place] ([facility])(IDES Clinic) TELE CONSULT [id number] Notes Entered by: AUGUSTUS TYLER 23 Dec 2012 1247 ------- ------- ------- ------- -- IDES/ME B entry review of encount ers/pac ket/rec ords AUGUSTUS TYLER 12/23 [place] ([facility])(ID ES Clinic) [place] ([facility])(Pulm onology Disease Cl) OUTPATIENT [id number] Adminis trative Evaluat ion Service s MEB needs PFT-PAIGE O CAMPOS Hinojosa 01/08 Released w/o Limitations [place] ([facility])(Pu [facility]monolo gy Disease Cl) [place] ([facility])([facility] Care Clinic) OUTPATIENT [id number] Adminis trative Evaluat ion Service s IA NILS evaluat oin MEB SM FARNAZ PATINO 01/15 Released w/o Limitations [place] ([facility])(Co ncussio n Care Clinic) [place] ([facility]IDES Clinic) OUTPATIENT [id number] rubio ENRIQUESVEN 01/16 Released with Work/Duty Limitations [place] ([facility])(ID ES Clinic) [place] ([facility])(Neur ology Clinic) OUTPATIENT [id number] ABDULLAHI Leong 06/17 Released w/o Limitations [place] ([facility])(Ne urology Clinic) [place] ([facility])([facility] M[facility] One) TELE CONSULT [id number] Notes Entered by: RAFIA HALL 18 Jun 2013 0803 ------- ------- ------- ------- -- RAFIA Langford 06/18 [place] ([facility])(AM H M04A [facility] One) [place] ([facility])(Case Managemen t Non-GWOT) OUTPATIENT [id number] Notes Entered by: BERTRAND ENGEL 12 Aug 2013 1716 ------- ------- ------- ------- -- [id number] CM Darrell donahue, call receive d from Loly Calderonan pedrito this patient BERTRAND ENGEL 08/12 Released w/o Limitations [place] ([facility])(Ca se Managem ent Non-GWO T) Procedures Combined list of: 1) Procedures from Department of Veterans Affairs facilities going back up to thelast 18 months, not all VA non-surgical procedures are included; 2) All procedures from the Department of Defense facilities. Procedure Procedure Type Code Date Perfomer Comments Sourc e PRESCRIPTION DRUG, GENERIC 04/06 DoD BLOOD, OCCULT, BY PEROXIDASE ACTIVITY (EG, GUAIAC), QUALITATIVE, FECES, 1-3 SIMULT DETERM, PERF FOR OTH THAN COLOREC NEOPLASM SCREEN 02/12 DoD PHYSICAL PERFORMANCE TEST OR MEASUREMENT (EG, MUSCULOSKELETAL, FUNCTIONAL CAPACITY), WITH WRITTEN REPORT, EACH 15 MINUTES 02/02 DoD SELF-CARE/HOME MANAGMENT TRAIN (EG,ACT OF DAILY LIVING (ADL) &COMPENSAT TRAIN,MEAL PREPARATION,SAFETY PROCS,AND INSTRUCT IN USE OF ASST TECHNOLOGY DEV/ADPT EQUIP) DIR ONE-ON-ONE CONT,EA 15 MINUTES 12/24 DoD CHIROPRACTIC MANIPULATIVE TREATMENT (CMT); SPINAL, 1-2 REGIONS 12/15 DoD APPLICATION OF A MODALITY TO 1 OR MORE AREAS; ELECTRICAL STIMULATION (MANUAL), EACH 15 MINUTES 12/10 DoD APPLICATION OF A MODALITY TO 1 OR MORE AREAS; ELECTRICAL STIMULATION (MANUAL), EACH 15 MINUTES 12/08 DoD ELECTROCARDIOGRAM, ROUTINE ECG WITH AT LEAST 12 LEADS; WITH INTERPRETATION AND REPORT 12/08 DoD APPLICATION OF A MODALITY TO 1 OR MORE AREAS; ELECTRICAL STIMULATION (MANUAL), EACH 15 MINUTES 12/03 DoD APPLICATION OF A MODALITY TO 1 OR MORE AREAS; HOT OR COLD PACKS 12/02 DoD THERAPEUTIC PROCEDURE, 1 OR MORE AREAS, EACH 15 MINUTES; THERAPEUTIC EXERCISES TO DEVELOP STRENGTH AND ENDURANCE, RANGE OF MOTION AND FLEXIBILITY 12/01 DoD SELF-CARE/HOME MANAGMENT TRAIN (EG,ACT OF DAILY LIVING (ADL) &COMPENSAT TRAIN,MEAL PREPARATION,SAFETY PROCS,AND INSTRUCT IN USE OF ASST TECHNOLOGY DEV/ADPT EQUIP) DIR ONE-ON-ONE CONT,EA 15 MINUTES 11/27 DoD INJECTION, KETOROLAC TROMETHAMINE, PER 15 MG 11/26 DoD APPLICATION OF A MODALITY TO 1 OR MORE AREAS; HOT OR COLD PACKS 11/26 DoD APPLICATION OF A MODALITY TO 1 OR MORE AREAS; HOT OR COLD PACKS 11/24 DoD SELF-CARE/HOME MANAGMENT TRAIN (EG,ACT OF DAILY LIVING (ADL) &COMPENSAT TRAIN,MEAL PREPARATION,SAFETY PROCS,AND INSTRUCT IN USE OF ASST TECHNOLOGY DEV/ADPT EQUIP) DIR ONE-ON-ONE CONT,EA 15 MINUTES 11/19 DoD MANUAL THERAPY TECHNIQUES (EG, MOBILIZATION/ MANIPULATION, MANUAL LYMPHATIC DRAINAGE, MANUAL TRACTION), 1 OR MORE REGIONS, EACH 15 MINUTES 11/17 DoD SKIN TEST; TUBERCULOSIS, INTRADERMAL 10/17 DoD PURE TONE AUDIOMETRY (THRESHOLD); AIR ONLY 10/14 DoD PHYSICAL THERAPY RE-EVALUATION 07/19 DoD APPLICATION OF A MODALITY TO 1 OR MORE AREAS; HOT OR COLD PACKS 07/06 DoD APPLICATION OF A MODALITY TO 1 OR MORE AREAS; HOT OR COLD PACKS 07/04 DoD EDUCATIONAL SUPPLIES, SUCH BOOKS, TAPES, AND PAMPHLETS, FOR THE PATIENT'S EDUCATION AT COST TO PHYSICIAN OR OTHER QUALIFIED HEALTH AUTOMATIC DIE CUTTING MACHINE OPERATOR 07/01 DoD EDUCATIONAL SUPPLIES, SUCH BOOKS, TAPES, AND PAMPHLETS, FOR THE PATIENT'S EDUCATION AT COST TO PHYSICIAN OR OTHER QUALIFIED HEALTH AUTOMATIC DIE CUTTING MACHINE OPERATOR 06/30 DoD THERAPEUTIC PROCEDURE, 1 OR MORE AREAS, EACH 15 MINUTES; THERAPEUTIC EXERCISES TO DEVELOP STRENGTH AND ENDURANCE, RANGE OF MOTION AND FLEXIBILITY 06/22 DoD PHYSICAL THERAPY RE-EVALUATION 06/22 DoD APPLICATION OF A MODALITY TO 1 OR MORE AREAS; HOT OR COLD PACKS 06/20 DoD APPLICATION OF A MODALITY TO 1 OR MORE AREAS; HOT OR COLD PACKS 06/17 DoD PHYSICAL THERAPY EVALUATION 06/16 DoD HEPATITIS A AND HEPATITIS B VACCINE (HEPA-HEPB), ADULT DOSAGE, FOR INTRAMUSCULAR USE 06/14 DoD EDUCATIONAL SUPPLIES, SUCH BOOKS, TAPES, AND PAMPHLETS, FOR THE PATIENT'S EDUCATION AT COST TO PHYSICIAN OR OTHER QUALIFIED HEALTH AUTOMATIC DIE CUTTING MACHINE OPERATOR 05/07 DoD HEPATITIS A AND HEPATITIS B VACCINE (HEPA-HEPB), ADULT DOSAGE, FOR INTRAMUSCULAR USE 03/28 DoD PSYCHIATRIC DIAGNOSTIC EVALUATION 02/19 DoD CASE MANAGEMENT, EACH 15 MINUTES 08/12 DoD CHEMODENERVATION OF MUSCLE(S); MUSCLE(S) INNERVATED BY FACIAL, TRIGEMINAL, CERVICAL SPINAL AND ACCESSORY NERVES, BILATERAL (EG, FOR CHRONIC MIGRAINE) 06/17 DoD PSYCHIATRIC DIAGNOSTIC EVALUATION 01/09 DoD DIFFUSING CAPACITY (EG, CARBON MONOXIDE, MEMBRANE) (LIST SEPARATELY IN ADDITION TO CODE FOR PRIMARY PROCEDURE) 01/08 DoD COORDINATED CARE FEE, MAINTENANCE RATE 11/19 DoD PSYCHOTHERAPY, 30 MINUTES WITH PATIENT WHEN PERFORMED WITH AN EVALUATION AND MANAGEMENT SERVICE (LIST SEPARATELY IN ADDITION TO THE CODE FOR PRIMARY PROCEDURE) 11/14 DoD COORDINATED CARE FEE, MAINTENANCE RATE 10/25 DoD INDIVIDUAL PSYCHOTHERAPY, INSIGHT ORIENTED, BEHAVIOR MODIFYING AND/OR SUPPORTIVE, IN AN OFFICE OR OUTPATIENT FACILITY, APPROXIMATELY 20 TO 30 MINUTES [id number] W THE PATIENT; W MED EVAL & MGT SER 10/15 DoD COORDINATED CARE FEE, MAINTENANCE RATE 10/01 DoD COORDINATED CARE FEE, MAINTENANCE RATE 09/11 DoD INDIVIDUAL PSYCHOTHERAPY, INSIGHT ORIENTED, BEHAVIOR MODIFYING AND/OR SUPPORTIVE, IN AN OFFICE OR OUTPATIENT FACILITY, APPROXIMATELY 20 TO 30 MINUTES [id number] W THE PATIENT; W MED EVAL & MGT SER 09/05 DoD INJECTION, ONABOTULINUMTOXINA, 1 UNIT 08/27 DoD INDIVIDUAL PSYCHOTHERAPY, INSIGHT ORIENTED, BEHAVIOR MODIFYING AND/OR SUPPORTIVE, IN AN OFFICE OR OUTPATIENT FACILITY, APPROXIMATELY 20 TO 30 MINUTES [id number] W THE PATIENT; W MED EVAL & MGT SER 08/19 DoD COORDINATED CARE FEE, RISK ADJUSTED MAINTENANCE 08/16 DoD INDIVIDUAL PSYCHOTHERAPY, INSIGHT ORIENTED, BEHAVIOR MODIFYING AND/OR SUPPORTIVE, IN AN OFFICE OR OUTPATIENT FACILITY, APPROXIMATELY 20 TO 30 MINUTES [id number] W THE PATIENT; W MED EVAL & MGT SER 08/05 DoD INJECT(S),DIAG/THER AGNT,PARAVERTEB FAC (ZYGAPOPHYS) JT (OR NERV INNERVATING THAT JT) W IMAG GUIDANCE (FLUORO/CT),LUMB/SA C;3RD & ANY ADDITION LEVL (LIST SEPARATELY IN ADDITION TO CODE FOR PRIM PROC) 07/31 [facility] OCCUPATIONAL THERAPY RE-EVALUATION 07/22 [facility] PSYCHIATRIC DIAGNOSTIC INTERVIEW EXAMINATION 07/17 DoD INDIVIDUAL PSYCHOTHERAPY, INSIGHT ORIENTED, BEHAVIOR MODIFYING AND/OR SUPPORTIVE, IN AN OFFICE OR OUTPATIENT FACILITY, APPROXIMATELY 20 TO 30 MINUTES [id number] WITH THE PATIENT 07/16 DoD THERAPEUTIC PROCEDURE,1 OR MORE AREAS,EACH 15 MINUTES;NEUROMUSCUL AR REEDUCATION OF MOVEMENT,BALANCE,CO ORDINATION,KINESTHE TIC SENSE,POSTURE,AND/O R PROPRIOCEPTION FOR SITTING AND/OR STANDING ACTIVITIES 07/11 [facility] EDUCATIONAL SUPPLIES, SUCH BOOKS, TAPES, AND PAMPHLETS, FOR THE PATIENT'S EDUCATION AT COST TO PHYSICIAN OR OTHER QUALIFIED HEALTH AUTOMATIC DIE CUTTING MACHINE OPERATOR 07/09 DoD INJECTION, KETOROLAC TROMETHAMINE, PER 15 MG 07/05 [facility] POLYSOMNOGRAPHY;AGE 6 YEARS/OLDER,SLEEP STAGING W 4/MORE ADDITIONAL PARAMETERS OF SLEEP,W INITIATION OF CONTINUOUS POSITIVE AIRWAY PRESSURE THERAPY/BILEVEL VENTILATION,ATTENDE D BY A TECHNOLOGIST 07/03 [facility] EDUCATIONAL SUPPLIES, SUCH BOOKS, TAPES, AND PAMPHLETS, FOR THE PATIENT'S EDUCATION AT COST TO PHYSICIAN OR OTHER QUALIFIED HEALTH AUTOMATIC DIE CUTTING MACHINE OPERATOR 07/02 DoD INJECTION(S), ANESTHETIC AGENT(S) AND/OR STEROID; GREATER OCCIPITAL NERVE 07/01 [facility] THERAPEUTIC PROCEDURE,1 OR MORE AREAS,EACH 15 MINUTES;NEUROMUSCUL AR REEDUCATION OF MOVEMENT,BALANCE,CO ORDINATION,KINESTHE TIC SENSE,POSTURE,AND/O R PROPRIOCEPTION FOR SITTING AND/OR STANDING ACTIVITIES 06/27 DoD EDUCATIONAL SUPPLIES, SUCH BOOKS, TAPES, AND PAMPHLETS, FOR THE PATIENT'S EDUCATION AT COST TO PHYSICIAN OR OTHER QUALIFIED HEALTH AUTOMATIC DIE CUTTING MACHINE OPERATOR 06/26 [facility] EDUCATIONAL SUPPLIES, SUCH BOOKS, TAPES, AND PAMPHLETS, FOR THE PATIENT'S EDUCATION AT COST TO PHYSICIAN OR OTHER QUALIFIED HEALTH AUTOMATIC DIE CUTTING MACHINE OPERATOR 06/20 [facility] EDUCATIONAL SUPPLIES, SUCH BOOKS, TAPES, AND PAMPHLETS, FOR THE PATIENT'S EDUCATION AT COST TO PHYSICIAN OR OTHER QUALIFIED HEALTH AUTOMATIC DIE CUTTING MACHINE OPERATOR 06/18 [facility] OCCUPATIONAL THERAPY EVALUATION 06/06 [facility] NEUROPSYCHOLOGICAL TESTING (EG, [place] CARD SORTING TEST), ADMINISTERED BY A COMPUTER, WITH QUALIFIED HEALTH AUTOMATIC DIE CUTTING MACHINE OPERATOR INTERPRETATION AND REPORT 05/29 DoD INJECTION, KETOROLAC TROMETHAMINE, PER 15 MG 05/27 DoD CASE MANAGEMENT, EACH 15 MINUTES 05/21 [facility] PSYCHIATRIC EVALUATION OF HOSPITAL RECORDS, OTHER PSYCHIATRIC REPORTS, PSYCHOMETRIC AND/OR PROJECTIVE TESTS, AND OTHER ACCUMULATED DATA FOR MEDICALDIAGNOSTIC PURPOSES 05/21 DoD PSYCHIATRIC DIAGNOSTIC INTERVIEW EXAMINATION 05/21 DoD OCCUPATIONAL THERAPY EVALUATION 05/21 DoD CASE MANAGEMENT, EACH 15 MINUTES 05/16 DoD INJECT(S),OF DIAG/THER SUBS(S) (INCLD ANES,ANTISPASMODIC, OPIOID,STEROID,OTH LOCO),NOT INCLD NEUROLYTIC SUB,INCLD NEEDLE/CATH PLCMNT,INCLDS CONT FOR LOCALIZATION WHEN PERFORM,EPIDUR/SUBA JOHNNIE;LUMB/SAC 05/13 DoD INJECTION, HYDROMORPHONE, UP TO 4 MG 05/09 [facility] CASE MANAGEMENT, EACH 15 MINUTES 05/08 [facility] PSYCHIATRIC DIAGNOSTIC INTERVIEW EXAMINATION 05/08 [facility] INDIVIDUAL PSYCHOTHERAPY, INSIGHT ORIENTED, BEHAVIOR MODIFYING AND/OR SUPPORTIVE, IN AN OFFICE OR OUTPATIENT FACILITY, APPROXIMATELY 20 TO 30 MINUTES [id number] WITH THE PATIENT 05/07 [facility] EXERCISE CLASSES, NON-PHYSICIAN PROVIDER, PER SESSION 05/07 [facility] COMP DYN POSTUROGRPH SENS ORGANIZATION TEST (CDP-SOT),6 CONDITIONS (IE,EYES OPEN,EYES CLOSED,VISUAL SWAY,PLATFORM SWAY,EYES CLOSED PLATFORM SWAY,PLATFORM &VISUAL SWAY),INCLUD INTERPRETATION &REPORT 05/02 [facility] INDIVIDUAL PSYCHOTHERAPY, INSIGHT ORIENTED, BEHAVIOR MODIFYING AND/OR SUPPORTIVE, IN AN OFFICE OR OUTPATIENT FACILITY, APPROXIMATELY 45 TO 50 MINUTES PAMD-WV-[id number] WITH THE PATIENT 05/01 [facility] INJECTION, HYDROMORPHONE, UP TO 4 MG 04/30 [facility] SPONTANEOUS NYSTAGMUS TEST, INCLUDING GAZE AND FIXATION NYSTAGMUS, WITH RECORDING 04/30 [facility] SENSORIMOTOR EXAMINATION WITH MULTIPLE MEASUREMENTS OF OCULAR DEVIATION (EG, RESTRICTIVE OR PARETIC MUSCLE WITH DIPLOPIA) WITH INTERPRETATION AND REPORT (SEPARATE PROCEDURE) 04/29 [facility] ACOUSTIC IMMITTANCE TESTING, INCLUDES TYMPANOMETRY (IMPEDANCE TESTING), ACOUSTIC REFLEX THRESHOLD TESTING, AND ACOUSTIC REFLEX DECAY TESTING 04/25 [facility] HEARING SERVICE, MISCELLANEOUS 04/23 DoD INJECTION, ONDANSETRON HCL, PER 1 MG 04/22 [facility] INDIVIDUAL PSYCHOTHERAPY, INSIGHT ORIENTED, BEHAVIOR MODIFYING AND/OR SUPPORTIVE, IN AN OFFICE OR OUTPATIENT FACILITY, APPROXIMATELY 45 TO 50 MINUTES [id number] WITH THE PATIENT 04/09 [facility] CASE MANAGEMENT, EACH 15 MINUTES 04/02 DoD INJECTION, METOCLOPRAMIDE HCL, UP TO 10 MG 03/25 DoD INJECTION, KETOROLAC TROMETHAMINE, PER 15 MG 03/05 [facility] UNCLASSIFIED DRUGS 03/04 [facility] DIGITAL ANALYSIS OF ELECTROENCEPHALOGRA M (EEG) (EG, FOR EPILEPTIC SPIKE ANALYSIS) 03/04 [facility] INDIVIDUAL PSYCHOTHERAPY, INSIGHT ORIENTED, BEHAVIOR MODIFYING AND/OR SUPPORTIVE, IN AN OFFICE OR OUTPATIENT FACILITY, APPROXIMATELY 20 TO 30 MINUTES [id number] WITH THE PATIENT 02/21 [facility] INDIVIDUAL PSYCHOTHERAPY, INSIGHT ORIENTED, BEHAVIOR MODIFYING AND/OR SUPPORTIVE, IN AN OFFICE OR OUTPATIENT FACILITY, APPROXIMATELY 20 TO 30 MINUTES [id number] WITH THE PATIENT 02/20 DoD CASE MANAGEMENT, EACH 15 MINUTES 02/18 DoD CASE MANAGEMENT, EACH 15 MINUTES 02/15 DoD CASE MANAGEMENT, EACH 15 MINUTES 02/07 DoD CASE MANAGEMENT, EACH 15 MINUTES 02/06 DoD CASE MANAGEMENT, EACH 15 MINUTES DoD THERAPEUTIC PROCEDURE,1 OR MORE AREAS,EACH 15 MINUTES;NEUROMUSCUL AR REEDUCATION OF MOVEMENT,BALANCE,CO ORDINATION,KINESTHE TIC SENSE,POSTURE,AND/O R PROPRIOCEPTION FOR SITTING AND/OR STANDING ACTIVITIES 11/09 DoD THERAPEUTIC PROCEDURE,1 OR MORE AREAS,EACH 15 MINUTES;NEUROMUSCUL AR REEDUCATION OF MOVEMENT,BALANCE,CO ORDINATION,KINESTHE TIC SENSE,POSTURE,AND/O R PROPRIOCEPTION FOR SITTING AND/OR STANDING ACTIVITIES 11/02 DoD THERAPEUTIC PROCEDURE,1 OR MORE AREAS,EACH 15 MINUTES;NEUROMUSCUL AR REEDUCATION OF MOVEMENT,BALANCE,CO ORDINATION,KINESTHE TIC SENSE,POSTURE,AND/O R PROPRIOCEPTION FOR SITTING AND/OR STANDING ACTIVITIES 10/26 [facility] INDIVIDUAL PSYCHOTHERAPY, INSIGHT ORIENTED, BEHAVIOR MODIFYING AND/OR SUPPORTIVE, IN AN OFFICE OR OUTPATIENT FACILITY, APPROXIMATELY 45 TO 50 MINUTES [id number] WITH THE PATIENT 10/19 DoD THERAPEUTIC PROCEDURE,1 OR MORE AREAS,EACH 15 MINUTES;NEUROMUSCUL AR REEDUCATION OF MOVEMENT,BALANCE,CO ORDINATION,KINESTHE TIC SENSE,POSTURE,AND/O R PROPRIOCEPTION FOR SITTING AND/OR STANDING ACTIVITIES 10/19 [facility] PSYCHIATRIC DIAGNOSTIC INTERVIEW EXAMINATION 09/21 DoD CASE MANAGEMENT, EACH 15 MINUTES 09/13 [facility] DEVELOPMENT OF COGNITIVE SKILLS TO IMPROVE ATTENTION, MEMORY, PROBLEM SOLVING (INCLUDES COMPENSATORY TRAINING), DIRECT (ONE-ON-ONE) PATIENT CONTACT, EACH 15 MINUTES 09/07 DoD CASE MANAGEMENT, EACH 15 MINUTES 09/05 [facility] DEVELOPMENT OF COGNITIVE SKILLS TO IMPROVE ATTENTION, MEMORY, PROBLEM SOLVING (INCLUDES COMPENSATORY TRAINING), DIRECT (ONE-ON-ONE) PATIENT CONTACT, EACH 15 MINUTES 09/04 [facility] SENSORIMOTOR EXAMINATION WITH MULTIPLE MEASUREMENTS OF OCULAR DEVIATION (EG, RESTRICTIVE OR PARETIC MUSCLE WITH DIPLOPIA) WITH INTERPRETATION AND REPORT (SEPARATE PROCEDURE) 08/25 [facility] THERAPEUTIC PROCEDURE(S), GROUP (2 OR MORE INDIVIDUALS) 08/22 [facility] STANDARD COGNITIVE PERFORMANCE TESTING (EG,ROSS INFO PROC ASSESS)/HR OF QUALIFIED HEALTH AUTOMATIC DIE CUTTING MACHINE OPERATOR'S TIME,BOTH [id number] TIME ADMIN TESTS TO PAT & TIME INTERPRET TEST RESULTS & PREP REPORT 08/22 [facility] EPIDUROGRAPHY, RADIOLOGICAL SUPERVISION AND INTERPRETATION 08/18 [facility] INDIVIDUAL PSYCHOTHERAPY, INSIGHT ORIENTED, BEHAVIOR MODIFYING AND/OR SUPPORTIVE, IN AN OFFICE OR OUTPATIENT FACILITY, APPROXIMATELY 45 TO 50 MINUTES [id number] WITH THE PATIENT 08/17 [facility] THERAPEUTIC PROCEDURE(S), GROUP (2 OR MORE INDIVIDUALS) 08/15 [facility] THERAPEUTIC ACTIVITIES, DIRECT (ONE-ON-ONE) PATIENT CONTACT (USE OF DYNAMIC ACTIVITIES TO IMPROVE FUNCTIONAL PERFORMANCE), EACH 15 MINUTES 08/15 [facility] CASE MANAGEMENT, EACH 15 MINUTES 08/09 [facility] PSYCHIATRIC EVALUATION OF HOSPITAL RECORDS, OTHER PSYCHIATRIC REPORTS, PSYCHOMETRIC AND/OR PROJECTIVE TESTS, AND OTHER ACCUMULATED DATA FOR MEDICALDIAGNOSTIC PURPOSES 08/09 [facility] THERAPEUTIC PROCEDURE, 1 OR MORE AREAS, EACH 15 MINUTES; THERAPEUTIC EXERCISES TO DEVELOP STRENGTH AND ENDURANCE, RANGE OF MOTION AND FLEXIBILITY 08/02 [facility] SENSORY INTEGRATIVE TECHNIQUES TO ENHANCE SENSORY PROCESSING AND PROMOTE ADAPTIVE RESPONSES TO ENVIRONMENTAL DEMANDS, DIRECT (ONE-ON-ONE) PATIENT CONTACT, EACH 15 MINUTES 08/02 [facility] NEUROPSYC TSTNG(EG,MARSHA-R DICK NEUROPSYC LUCIANO,CHRIS MEMRY SCALES&[place] CARD SORT TST),W QUALIFIED HEALTH CARE PROFSIONAL INTERP&RPT,ADMINIST ERED ASSISTANT PROFESSOR OF DRAMA,/HR,CALVIN OSMAN,FCE-2-FCE 08/02 [facility] DIGITAL ANALYSIS OF ELECTROENCEPHALOGRA M (EEG) (EG, FOR EPILEPTIC SPIKE ANALYSIS) 08/01 [facility] PHYSICAL THERAPY RE-EVALUATION 08/01 DoD FOOT, ARCH SUPPORT, REMOVABLE, PREMOLDED, LONGITUDINAL/ METATARSAL, EACH 07/25 [facility] INTERACTIVE GROUP PSYCHOTHERAPY 07/25 [facility] DIGITAL ANALYSIS OF ELECTROENCEPHALOGRA M (EEG) (EG, FOR EPILEPTIC SPIKE ANALYSIS) 07/21 DoD INJECTION, KETOROLAC TROMETHAMINE, PER 15 MG 07/20 DoD THERAPEUTIC PROCEDURE, 1 OR MORE AREAS, EACH 15 MINUTES; THERAPEUTIC EXERCISES TO DEVELOP STRENGTH AND ENDURANCE, RANGE OF MOTION AND FLEXIBILITY 07/19 [facility] HEARING SERVICE, MISCELLANEOUS 07/14 DoD CASE MANAGEMENT, EACH 15 MINUTES 07/12 DoD CANALITH REPOSITIONING PROCEDURE(S) (EG, MELISSA MANEUVER, SEMONT MANEUVER), PER DAY 07/03 DoD CANALITH REPOSITIONING PROCEDURE(S) (EG, MELISSA MANEUVER, SEMONT MANEUVER), PER DAY 06/29 DoD NEUROBEHAV STATUS EXAM (CLIN ASSES THINK,REAS&JUDG,[EG ,ACQUIR KNOW,ATTEN,LANG,MEM ,PLAN&PROB SOLV&VIS SPATIAL ABIL]),PHYS/OTH QUAL HCP,BOTH [id number]-[id number] TIME W PT &TIME INTERP TST RES &PREP RPT;1ST HR 06/22 [facility] COLLECTION OF VENOUS BLOOD BY VENIPUNCTURE 05/29 [facility] INDIVIDUAL PSYCHOTHERAPY, INSIGHT ORIENTED, BEHAVIOR MODIFYING AND/OR SUPPORTIVE, IN AN OFFICE OR OUTPATIENT FACILITY, APPROXIMATELY 75 TO 80 MINUTES [id number] WITH THE PATIENT 07/08 DoD SCREENING TEST OF VISUAL ACUITY, QUANTITATIVE, BILATERAL 01/04 DoD PURE TONE AUDIOMETRY (THRESHOLD); AIR ONLY 01/04 DoD THERAPEUTIC PROCEDURE, 1 OR MORE AREAS, EACH 15 MINUTES; THERAPEUTIC EXERCISES TO DEVELOP STRENGTH AND ENDURANCE, RANGE OF MOTION AND FLEXIBILITY 12/28 DoD THERAPEUTIC PROCEDURE, 1 OR MORE AREAS, EACH 15 MINUTES; THERAPEUTIC EXERCISES TO DEVELOP STRENGTH AND ENDURANCE, RANGE OF MOTION AND FLEXIBILITY 12/23 DoD APPLICATION OF A MODALITY TO 1 OR MORE AREAS; HOT OR COLD PACKS 12/22 DoD EDUCATION &TRAINING, PATIENT SELF-MGT QUALIFIED, NONPHYSICIAN HEALTH AUTOMATIC DIE CUTTING MACHINE OPERATOR USING STDIZED CURRICULUM, [id number] W THE PATIENT (COULD INCL CAREGIVER/FAMILY) EA 30 MIN; INDIVIDUAL PATIENT 12/21 DoD APPLICATION OF A MODALITY TO 1 OR MORE AREAS; HOT OR COLD PACKS 11/10 DoD PURE TONE AUDIOMETRY (THRESHOLD); AIR ONLY 11/09 DoD APPLICATION OF A MODALITY TO 1 OR MORE AREAS; HOT OR COLD PACKS 11/08 DoD APPLICATION OF A MODALITY TO 1 OR MORE AREAS; HOT OR COLD PACKS 11/05 DoD THERAPEUTIC PROCEDURE(S), GROUP (2 OR MORE INDIVIDUALS) 11/02 DoD APPLICATION OF A MODALITY TO 1 OR MORE AREAS; HOT OR COLD PACKS 10/25 DoD THERAPEUTIC PROCEDURE, 1 OR MORE AREAS, EACH 15 MINUTES; THERAPEUTIC EXERCISES TO DEVELOP STRENGTH AND ENDURANCE, RANGE OF MOTION AND FLEXIBILITY 10/20 DoD INJECTION, TRIAMCINOLONE ACETONIDE, NOT OTHERWISE SPECIFIED, 10 MG 10/12 [facility] COORDINATED CARE FEE, MAINTENANCE RATE 01/30 [facility] COORDINATED CARE FEE, MAINTENANCE RATE 01/28 [facility] Physician Supervised Group Educational Services 11/09 TIFFANI, FERNANDA Kelley [facility] Threshold Audiogram (Pure Tone) Threshold Audiogram (Pure Tone) 28981 11/09 TIFFANI FERNANDA Kelley [facility] Modalities Cryotherapy Cold Packs Modalities Cryotherapy Cold Packs [id number] 11/08 LENIN JAQUEZ [facility] Physical Therapy Mobilization Joint Physical Therapy Mobilization Joint [id number] 11/08 LENIN JAQUEZ [facility] Physical Medicine - Group Physical Therapy Se ion Physical Medicine - Group Physical Therapy Session [id number] 11/08 LENIN JAQUEZ [facility] Physical Therapy Mobilization Joint Physical Therapy Mobilization Joint [id number] 11/05 AMARIBELIA BRUNNER [facility] Modalities Cryotherapy Cold Packs Modalities Cryotherapy Cold Packs [id number] 11/05 [place] [place] [facility] [place] [place] Physical Medicine - Group Physical Therapy Se ion Physical Medicine - Group Physical Therapy Session 71124 11/05 [facility] Physical Medicine - Group Physical Therapy Se ion Physical Medicine - Group Physical Therapy Session 66902 11/02 EFRAÍN CHAVEZ [facility] Physical Therapy: ___ Se ion Segments, 15 Minutes Each Physical Therapy: ___ Session Segments, 15 Minutes Each 32108 11/02 EFRAÍN CHAVEZ [facility] Physical Therapy Mobilization Joint Physical Therapy Mobilization Joint 57901 11/02 EFRAÍN CHAVEZ [facility] Modalities Cryotherapy Cold Packs Modalities Cryotherapy Cold Packs 65926 11/02 EFRAÍN CHAVEZ [facility] Modalities Cryotherapy Cold Packs Modalities Cryotherapy Cold Packs 23371 10/25 AMARI, [facility] Physical Therapy Mobilization Joint Physical Therapy Mobilization Joint 68324 10/25 AMARI, [facility] Physical Therapy: ___ Se ion Segments, 15 Minutes Each Physical Therapy: ___ Session Segments, 15 Minutes Each 61860 10/25 BELIA FITZPATRICK [facility] A isted Exercises For ROM Assisted Exercises For ROM 92218 10/20 TASHIA BROWNE [facility] Physical Therapy Service Evaluation Physical Therapy Service Evaluation 79233 10/20 TASHIA BROWNE [facility] Injection, triamcinolone acetonide, not otherwise specified, 10 mg 10/13 ROSENDO GOLDEN [facility] Arthrocentesis Injection Of Shoulder Joint Arthrocentesis Injection Of Shoulder Joint 82973 10/13 ROSENDO GOLDEN SHOULDER Patient verbally consented. Risks include, but not limited to: infection, bleeding, soft tissue injury, pigmentation changes, need for repeat procedures. R post shoulder site prepped in sterile manner, injection of 1 cc Kenalog 40, 2 cc 1% Lidocaine, 2 cc 0.5% Marcaine without complication, into the shoulder using the subacromial approach. Patient reported improvement in pain several minutes after the injection. Patient discharged in stable [facility] Modalities Electrical Stimulation Modalities Electrical Stimulation 44148 05/18 ROBER PENA [facility] Phys Therapy Education Self Care Training - Per 15 Minutes Phys Therapy Education Self Care Training - Per 15 Minutes 17702 05/18 ROBER PENA [facility] Physical Therapy: ___ Se ion Segments, 15 Minutes Each Physical Therapy: ___ Session Segments, 15 Minutes Each 80137 05/18 ROBER PENA [facility] Fecal Analysis - Occult Blood From Digital Rectal Exam 02/12 CHARLES MARLOW hemoccult neg in clinic [facility] PT A e ment Physical Performance Testing PT Assessment Physical Performance Testing 49187 02/02 JUDE RODRIGUES [facility] Patient Training And Self-Care Skills Patient Training And Self-Care Skills 36545 02/02 JUDE RODRIGUES Physical Therapy Service Evaluation Physical Therapy Service Evaluation 61560 02/02 JUDE RODRIGUES [facility] Physical Therapy Service Evaluation Physical Therapy Service Evaluation 84874 12/24 LEE HYDE [facility] Patient Training And Self-Care Skills Patient Training And Self-Care Skills 02045 12/24 LEE HYDE [facility] Chiropractic Manip Treatmt (CMT) Spinal One To Two Regions Chiropractic Manip Treatmt (CMT) Spinal One To Two Regions 31561 12/15 JUDE RODRIGUES [facility] Physical Therapy Mobilization Joint Physical Therapy Mobilization Joint 01926 12/15 JUDE RODRIGUES Patient Training And Self-Care Skills Patient Training And Self-Care Skills 77999 12/15 JUDE RODRIGUES [facility] Physical Therapy Service Re-Evaluation Physical Therapy Service Re-Evaluation 18816 12/15 JUDE RODRIGUES [facility] Modalities Electrical Stimulation Modalities Electrical Stimulation 97678 12/10 NICANOR WILCOX hand held unit set at 4/10 for 15 min. [facility] Phys Therapy Education Self Care Training - Per 15 Minutes Phys Therapy Education Self Care Training - Per 15 Minutes 40585 12/10 NICANOR WILCOX [facility] Physical Therapy: ___ Se ion Segments, 15 Minutes Each Physical Therapy: ___ Session Segments, 15 Minutes Each 69757 12/10 NICANOR WILCOX [facility] ECG 12-Lead ECG 12-Lead 06701 12/08 BEULAH RODGERS [facility] Modalities Electrical Stimulation Modalities Electrical Stimulation 81880 12/03 NICANOR WILCOX [facility] Modalities Cryotherapy Cold Packs Modalities Cryotherapy Cold Packs 85696 12/03 NICANOR WILCOX [facility] Physical Therapy: ___ Se ion Segments, 15 Minutes Each Physical Therapy: ___ Session Segments, 15 Minutes Each 80536 12/03 NICANOR WILCOX Phys Therapy Education Self Care Training - Per 15 Minutes Phys Therapy Education Self Care Training - Per 15 Minutes 41958 12/03 NICANOR WILCOX [facility] Modalities Electrical Stimulation Modalities Electrical Stimulation 08519 12/02 NICANOR WILCOX hand held unit set at 3/10 for 15 min [facility] Modalities Cryotherapy Cold Packs Modalities Cryotherapy Cold Packs 52399 12/02 NICANOR WILCOX [facility] Phys Therapy Education Self Care Training - Per 15 Minutes Phys Therapy Education Self Care Training - Per 15 Minutes 72520 12/02 NICANOR WILCOX [facility] Physical Therapy: ___ Se ion Segments, 15 Minutes Each Physical Therapy: ___ Session Segments, 15 Minutes Each 24095 12/02 NICANOR WILCOX [facility] Physical Therapy: ___ Se ion Segments, 15 Minutes Each Physical Therapy: ___ Session Segments, 15 Minutes Each 07251 12/01 LEE HYDE [facility] Physical Therapy Service Evaluation Physical Therapy Service Evaluation 79848 12/01 LEE HYDE [facility] Patient Training And Self-Care Skills Patient Training And Self-Care Skills 49463 12/01 LEE HYDE [facility] Patient Training And Self-Care Skills Patient Training And Self-Care Skills 10674 11/27 JUDE RODRIGUES [facility] Physical Therapy Service Re-Evaluation Physical Therapy Service Re-Evaluation 58551 11/27 JUDE RODRIGUES Injection, ketorolac tromethamine, per 15 mg 11/27 MELINA DE LA CRUZ Physician Supervised Injection Intramuscular Physician Supervised Injection Intramuscular 19630 11/27 MELINA DE LA CRUZ Modalities Cryotherapy Cold Packs Modalities Cryotherapy Cold Packs 94250 11/26 NICANOR WILCOX Physical Therapy: ___ Se ion Segments, 15 Minutes Each Physical Therapy: ___ Session Segments, 15 Minutes Each 61911 11/26 NICANOR WILCOX Phys Therapy Education Self Care Training - Per 15 Minutes Phys Therapy Education Self Care Training - Per 15 Minutes 79328 11/26 NICANOR WILCOX Phys Therapy Education Self Care Training - Per 15 Minutes Phys Therapy Education Self Care Training - Per 15 Minutes 28058 11/24 NICANOR WILCOX Modalities Cryotherapy Cold Packs Modalities Cryotherapy Cold Packs 18774 11/24 NICANOR WILCOX Physical Therapy: ___ Se ion Segments, 15 Minutes Each Physical Therapy: ___ Session Segments, 15 Minutes Each 19944 11/24 NICANOR WILCOX Phys Therapy Education Self Care Training - Per 15 Minutes Phys Therapy Education Self Care Training - Per 15 Minutes 17516 11/19 NICANOR WILCOX Modalities Cryotherapy Cold Packs Modalities Cryotherapy Cold Packs 48344 11/19 NICANOR WILCOX Physical Therapy: ___ Se ion Segments, 15 Minutes Each Physical Therapy: ___ Session Segments, 15 Minutes Each 93890 11/19 NICANOR WILCOX [facility] Physical Therapy Mobilization Joint Physical Therapy Mobilization Joint 81766 11/17 JUDE RODRIGUES [facility] Patient Training And Self-Care Skills Patient Training And Self-Care Skills 04746 11/17 JUDE RODRIGUES [facility] Physical Therapy Service Evaluation Physical Therapy Service Evaluation 74064 11/17 JUDE RODRIGUES Physician Supervised Injection Intramuscular Antibiotic Physician Supervised Injection Intramuscular Antibiotic 67117 10/18 AMANDO FOWLER [facility] Immunization Administration By Injection, Each Additional Vaccine 10/18 AMANDO FOWLER [facility] Immunization Administration By Injection, One Vaccine Immunization Administration By Injection, One Vaccine 44599 10/18 SEWARD AMANDO [facility] Venipuncture Venipuncture 47608 10/18 SEWARD AMANDO [facility] Influenza Virus Vaccine Intranasal Live Attenuated 10/18 SEWARD AMANDO [facility] Skin Test Anergy Tuberculin Intradermal Skin Test Anergy Tuberculin Intradermal 35296 10/18 [facility] Vaccines Viral Polio, Inactivated Vaccines Viral Polio, Inactivated 64427 10/18 SEWARD AMANDO [facility] Meningococcal Polysaccharide Diphtheria Toxoid Conjugate Vaccine 10/18 SEWARD [facility] Tdap Vaccine Tdap Vaccine 11611 10/18 SEWARD [facility] Ear Protector Attenuation Measurements Ear Protector Attenuation Measurements 87359 10/14 ZACHARIAH NASSAR [facility] Audiometry Group Testing Audiometry Group Testing 57787 10/14 ZACHARIAH NASSAR [facility] Special Physician Services Analysis Of Computerized Data Special Physician Services Analysis Of Computerized Data 38265 10/14 ZACHARIAH NASSAR [facility] Physician Supervised Services Provision Of Special Supplies Physician Supervised Services Provision Of Special Supplies 55401 10/14 ZACHARIAH NASSAR [facility] Physician Supervised Group Educational Services 10/14 ZACHARIAH NASSAR [facility] Threshold Audiogram (Pure Tone) Threshold Audiogram (Pure Tone) 16199 10/14 ZACHARIAH NASSAR [facility] Physical Therapy Service Re-Evaluation Physical Therapy Service Re-Evaluation 96482 06/22 DELFIN TORREZ [facility] Psychiatric Diagnostic Evaluation Psychiatric Diagnostic Evaluation 04255 02/19 MARQUITA MARMOLEJO [facility] Coordinated care fee, maintenance rate 08/12 BERTRAND ENGEL [facility] Case Management, each 15 minutes 08/12 BERTRAND ENGEL multi disciplinary conf, f/u assessment ,vm [facility] Nerve Block Facial Nerve Block Facial 09006 ABDULLAHI REYNOLDS Nerve Block Other Branch 06/18 ABDULLAHI REYNOLDS [facility] Case Management, each 15 minutes 04/17 CARMEN JONES [facility] Coordinated care fee, maintenance rate 04/17 CARMEN JONES [facility] Case Management, each 15 minutes 02/19 CARMEN JONES [facility] Psychiatric Diagnostic Evaluation Comprehensive Examination Psychiatric Diagnostic Evaluation Comprehensive Examination 68894 01/10 PAVAN GARCIA Pulmonary Function Carbon Monoxide Diffusion % (DLCO) Pulmonary Function Carbon Monoxide Diffusion % (DLCO) 46700 01/09 RADHA BULLOCK I Remigio Pulm Funct Tests Airway Resistance By Plethysmography Pulm Funct Tests Airway Resistance By Plethysmography 51377 01/09 RADHA BULLOCK I Remigio Spirometry Spirometry 62334 01/09 RADHA BULLOCK I Remigio Osteopathic Manip Treatment (OMT) 1-2 Body Regions Involved Osteopathic Manip Treatment (OMT) 1-2 Body Regions Involved 72673 12/20 ABDULLAHI REYNOLDS Nerve Block Other Branch 12/20 ABDULLAHI REYNOLDS Nerve Block Facial Nerve Block Facial 15432 ABDULLAHI REYNOLDS BOTULINUM TOXIN PROCEDURE INDICATION: Chronic migraine headache and cervicalgia CONSENT: Risk versus benefits of this procedure were discussed with the patient and oral consent was obtained. The patient was also given a standardized handout regarding the risks associated with botulinum toxin A. PROCEDURES: 1. Bilateral Facial Nerve Ablation 2. Nerve ablation cervical spine MATERIALS/EQUIPMEN T: Botulinum Toxin A: 100 Units reconstituted with 2cc sterile saline for a 50units/ml dilution (this was repeated for the second 100U) for a total of four two 1cc syringes. The areas were cleansed with an alcohol swab and a 30-gauge needle was used for the injections. PATTERN OF INJECTION: The following muscle groups were injected: Muscle Site Amount of Botulinum Injected (U) Total (U) Frontalis bilateral 5 U x 5 25 Rod Drawer bilateral 2.5 U x 2 5U Procerus 2.5 5U x1 2.5U Temporalis bilateral 5U x 6 30U Occipitalis bilateral 5U x 6 30U Cervical paraspinals bilateral 5U x 6 30U Trapezius bilateral 5 U x 4 20U TOTAL UNITS OF BOTULINUM TOXIN UTILIZED: 142.5 Units TOTAL UNITS OF BOTULINUM TOXIN WASTED: 57.5 Units COMPLICATIONS: None FOLLOW UP: Expectations regarding the outcome of Botox injections, including facial weakness and possible neck weakness, were discussed with the patient, along with the fact that these complications typically lashell over 2-3 months. The proper timing interval for Botox injections, typically 3 months, was discussed with the patient, and he may make a follow up appointment after that time should she desire further Botox therapy, sooner as needed for additional concerns or side effects. [facility] Psychotherapy Individual Approx 30 Min W/ Medical Evaluation & Management 11/14 TOBIAS RIOS Osteopathic Manip Treatment (OMT) 1-2 Body Regions Involved Osteopathic Manip Treatment (OMT) 1-2 Body Regions Involved 50273 10/30 ABDULLAHI REYNOLDS Coordinated care fee, maintenance rate 10/25 CARMEN JONES Psychotherapy Individual Approx 30 Min W/ Medical Evaluation & Management Psychotherapy Individual Approx 30 Min W/ Medical Evaluation & Management 02760 10/15 TOBIAS RIOS Pulse Oximetry Pulse Oximetry 35212 10/10 ALIYAH AYALA Coordinated care fee, maintenance rate 10/01 CARMEN JONES Case Management, each 15 minutes 10/01 CARMEN JONES Coordinated care fee, maintenance rate 09/11 CARMEN JONES Case Management, each 15 minutes 09/11 CARMEN JONES Psychotherapy Individual Approx 30 Min W/ Medical Evaluation & Management Psychotherapy Individual Approx 30 Min W/ Medical Evaluation & Management 93866 09/05 TOBIAS RIOS Nerve Ablation Facial 08/28 ABDULLAHI REYNOLDS Nerve Ablation Cervical Spine 08/28 ABDULLAHI REYNOLDS Injection, onabotulinumtoxina, 1 unit 08/28 ABDULLAHI REYNOLDS Pulse Oximetry Pulse Oximetry 40206 08/22 ALIYAH AYALA Coordinated care fee, risk adjusted maintenance 08/21 CARMEN JONES [facility] Case Management, each 15 minutes 08/21 CARMEN JONES Psychotherapy Individual Approx 30 Min W/ Medical Evaluation & Management Psychotherapy Individual Approx 30 Min W/ Medical Evaluation & Management 42418 08/19 TOBIAS RIOS Psychotherapy Individual Approx 30 Min W/ Medical Evaluation & Management Psychotherapy Individual Approx 30 Min W/ Medical Evaluation & Management 51772 08/05 TOBIAS RIOS Fluoroscopic Guidance For Injection Of Paravertebral Facet Joint Lumbar Third Level Fluoroscopic Guidance For Injection Of Paravertebral Facet Joint Lumbar Third Level 81126 08/01 ANCA BUSTILLO [facility] Fluoroscopic Guidance For Injection Of Paravertebral Facet Joint Lumbar Second Level Fluoroscopic Guidance For Injection Of Paravertebral Facet Joint Lumbar Second Level 27044 08/01 ANCA BUSTILLO [facility] Fluoroscopic Guidance For Injection Of Paravertebral Facet Joint Lumbar Single Level Fluoroscopic Guidance For Injection Of Paravertebral Facet Joint Lumbar Single Level 63455 08/01 ANAC BUSTILLO [facility] Occupational Therapy Re-Evaluation Occupational Therapy Re-Evaluation 71157 07/22 ELIEZER MOORE [facility] Psychiatric Diagnostic Evaluation Comprehensive Examination Psychiatric Diagnostic Evaluation Comprehensive Examination 04797 07/17 TOBIAS RIOS [facility] Physician Supervised Services Provision Of Educational Supplies Physician Supervised Services Provision Of Educational Supplies 12454 07/11, ALEK Bravo [facility] Physical Therapy Neuromuscular Re-education Physical Therapy Neuromuscular Re-education 99647 07/11, ALEK A [facility] PT A e ment Kinetic Training PT Assessment Kinetic Training 39823 07/11, ALEK A [facility] Physician Supervised Services Provision Of Educational Supplies Physician Supervised Services Provision Of Educational Supplies 15387 07/09, [facility] Shelly [facility] PT A e ment Kinetic Training PT Assessment Kinetic Training 78534 07/09, [facility] Shelly [facility] Physical Therapy Neuromuscular Re-education Physical Therapy Neuromuscular Re-education 28564 07/09, ALEK Bravo [facility] Shelly isted Exercises For ROM Assisted Exercises For ROM 32025 07/09, ALEK Bravo [facility] Injection, ketorolac tromethamine, per 15 mg 07/05 ROBER BYRNE [facility] Injection, promethazine HCl, up to 50 mg 07/05 ROBER BYRNE [facility] Physician Supervised Injection Intramuscular Physician Supervised Injection Intramuscular 62878 07/05 ROBER BYRNE Pt recieved injectioin of 50mg (25mg/mL x 2mL) phenergan into left gluteus at 0830. pt also recieved injection of 60mg (30mg/mL x 2mL) Ketorolac into right gluteus. Area injected was prepped with alcohol swab. Headache was 8/10 before injection. Pt was monitored for 30 min, condition improved and released to an escort with no adverse reaction to medications, headache was 4/10 when released. Phenergan LOT #[id number] EXP 04/2013. Ketorolac LOT # [id number] EXP. [id number] [facility] Polysomnography W/ 4+ Add'l Sleep Micah & Initiation Of CPAP/Bilev Vent 07/04 ALIYAH AYALA [facility] Physician Supervised Services Provision Of Educational Supplies Physician Supervised Services Provision Of Educational Supplies 06328 07/02, ALEK A [facility] PT A e ment Kinetic Training PT Assessment Kinetic Training 96179 07/02, ALEK A [facility] Physical Therapy Neuromuscular Re-education Physical Therapy Neuromuscular Re-education 84049 07/02, ALEK A [facility] Nerve Block Greater Occipital 07/01 SHIRA LEONE [facility] Physician Supervised Services Provision Of Educational Supplies Physician Supervised Services Provision Of Educational Supplies 55602 06/27, ALEK A [facility] Physical Therapy Neuromuscular Re-education Physical Therapy Neuromuscular Re-education 61307 06/27, ALEK A [facility] PT A e ment Kinetic Training PT Assessment Kinetic Training 35990 06/27, ALEK A [facility] Physician Supervised Services Provision Of Educational Supplies Physician Supervised Services Provision Of Educational Supplies 80312 06/20, ALEK A [facility] PT A e ment Kinetic Training PT Assessment Kinetic Training 58663 06/20, ALEK A [facility] Physical Therapy Neuromuscular Re-education Physical Therapy Neuromuscular Re-education 71029 06/20, ALEK Bravo [facility] Physician Supervised Services Provision Of Educational Supplies Physician Supervised Services Provision Of Educational Supplies 10193 06/19, ALEK A [facility] PT A e ment Kinetic Training PT Assessment Kinetic Training 20024 06/19, [facility] A [facility] Physical Therapy Neuromuscular Re-education Physical Therapy Neuromuscular Re-education 85308 06/19, ALEK Bravo [facility] Occupational Therapy Evaluation Occupational Therapy Evaluation 91897 06/07 ELIEZER MOORE [facility] Psychometric Neuropsych Testing Battery Admin By Computer Psychometric Neuropsych Testing Battery Admin By Computer 27741 05/30 FRANK COHEN [facility] Psychometric Neuropsych Testing Battery Admin By Physician Psychometric Neuropsych Testing Battery Admin By Physician [id number] 05/30 FRANK COHEN [facility] Psychometric Neuropsych Testing Battery Admin By Director Oracle Database Psychometric Neuropsych Testing Battery Admin By Director Oracle Database 38874 05/30 FRANK COHEN [facility] Psychiatric Diagnostic Evaluation Comprehensive Examination Psychiatric Diagnostic Evaluation Comprehensive Examination 55233 05/30 FRANK COHEN [facility] Case Management, each 15 minutes 05/22 NASH GEORGE [facility] Coordinated care fee, maintenance rate 05/22 NASH GEORGE [facility] Psychiatric Diagnostic Evaluation Comprehensive Examination Psychiatric Diagnostic Evaluation Comprehensive Examination 20921 05/21 LILLIAN GRAY [facility] Occupational Therapy Evaluation Occupational Therapy Evaluation 86090 05/21 PETTY MARTINEZ [facility] Psychiatric Diagnostic Evaluation Review of Records and Reports Psychiatric Diagnostic Evaluation Review of Records and Reports 76890 05/21 LUIS NY [facility] Case Management, each 15 minutes 05/16 NASH GEORGE Coordinated care fee, maintenance rate 05/16 NASH GEORGE [facility] Exercise cla es, non-physician provider, per se ion 05/09 KRYSTYNA OWENS [facility] Clinical Social Work Individual Outpatient Counseling 30 Minutes Clinical Social Work Individual Outpatient Counseling 30 Minutes 95105 05/09 DWIGHT DARNELL [facility] Case Management, each 15 minutes 05/08 WILNER GARCIA F/u targeted assessment Transfer to/discharge from [facility] Coordinated care fee, maintenance rate 05/08 WILNER GARCIA [facility] Psychiatric Diagnostic Evaluation Comprehensive Examination Psychiatric Diagnostic Evaluation Comprehensive Examination 26206 05/08 TOBIAS RIOS [facility] Vestibular Evaluation & Recording Computerized Dynamic Posturography 05/03 SWATHI DIAZ [facility] Psychotherapy Individual Approximately 45 Minutes Psychotherapy Individual Approximately 45 Minutes 74022 05/01 SABRINA GREEN [facility] Acoustic Immittance Test Acoustic Immittance Test 78707 04/30 CHEN CARROLL [facility] Audiometry [place] Test (Pure Tone) Audiometry [place] Test (Pure Tone) 23342 04/30 CHEN CARROLL [facility] Audiometry Speech Threshold With Discrimination Audiometry Speech Threshold With Discrimination 23091 04/30 CHEN CARROLL Audiometry [place] Test (Speech) Audiometry [place] Test (Speech) 65625 04/30 CHEN CARROLL Evoked Otoacoustic Amairani ions Diagnostic Evaluation 04/30 CHEN CARROLL Threshold Audiogram (Pure Tone) Threshold Audiogram (Pure Tone) 83431 04/30 CHEN CARROLL Vestibular Evaluation And Recording Of Spontaneous Nystagmus Vestibular Evaluation And Recording Of Spontaneous Nystagmus 83639 04/30 SWATHI DIAZ [facility] Physical Therapy Service Evaluation Physical Therapy Service Evaluation 97934 04/30 SWATHI DIAZ [facility] Ophthalmological Sensorimotor Exam Ophthalmological Sensorimotor Exam 80894 04/29 SANDEEP ATKINS [facility] Ophthalmological Prior Patient Start Intermediate Level Care Ophthalmological Prior Patient Start Intermediate Level Care 81534 04/29 SANDEEP ATKINS [facility] Hearing service, miscellaneous 04/23 JULIA ALFONSO [facility] Audiometry Group Testing Audiometry Group Testing 92008 04/23 JULIA ALFONSO [facility] Psychologic Testing And Report Administered By Physician Psychologic Testing And Report Administered By Physician [id number] 04/17 SVETA BOND [facility] Psychotherapy Individual Approximately 45 Minutes Psychotherapy Individual Approximately 45 Minutes 58151 04/09 SABRINA GREEN [facility] Case Management, each 15 minutes 04/02 WILNER GARCIA F/u targeted assessment Coordination of single service condition exacerbation counseling Patient teaching Medication teaching. [facility] Coordinated care fee, risk adjusted maintenance 04/02 WILNER GARCIA [facility] Injection, ketorolac tromethamine, per 15 mg 03/05 ALIYAH DOMÍNGUEZ For headache 03/26 Lot No.? [id number] Exp Date? Sep 2013 Dosage? 60mg Route? IM Site? Right Buttock Educated patient on side effects & reactions. Observed for 15 min then released. All instructions understood. [facility] Physician Supervised Injection Intramuscular Physician Supervised Injection Intramuscular 98511 03/05 ALIYAH DOMÍNGUEZ [facility] EEG Technique Digital Analysis EEG Technique Digital Analysis 78863 03/04 RAMÍREZ LY [facility] EEG Technique Exam Recording Awake And Drowsy EEG Technique Exam Recording Awake And Drowsy 58869 03/04 RAMÍREZ LY [facility] Clinical Social Work Individual Outpatient Counseling 30 Minutes Clinical Social Work Individual Outpatient Counseling 30 Minutes [id number] 02/22 DWIGHT DARNELL [facility] Clinical Social Work Individual Outpatient Counseling 30 Minutes Clinical Social Work Individual Outpatient Counseling 30 Minutes 04132 02/21 DWIGHT DARNELL [facility] Case Management, each 15 minutes 02/18 WILNER GARCIA Multidisciplinary conference Cooedination of a single service. [facility] Coordinated care fee, risk adjusted maintenance, Level 3 02/18 WILNER GARCIA [facility] Case Management, each 15 minutes 02/15 WILNER GARCAI Initial assessment comprehensive Care Plan development Medication teaching Condition exacerabion counseling Patient teaching DoD Coordinated care fee, risk adjusted maintenance, Level 3 02/15 WILNER GARCIA [facility] Case Management, each 15 minutes 02/07 KEVIN JAMES Modified / fractional assessment supported in documentation DoD Coordinated care fee, maintenance rate 02/07 KEVIN JAMES [facility] Case Management, each 15 minutes 02/06 JENNIFER PONCE V DoD Coordinated care fee, risk adjusted maintenance 02/06 JENNIFER PONCE V DoD Coordinated care fee, maintenance rate 01/30 MARIAH MARSHALL [facility] Coordinated care fee, maintenance rate 01/28 MARIAH MARSHALL [facility] Case Management, each 15 minutes NASH GEORGE [facility] Coordinated care fee, maintenance rate NAHS GEORGE [facility] Physician Supervised Group Educational Services 11/09, ALEK A [facility] Physical Therapy Neuromuscular Re-education Physical Therapy Neuromuscular Re-education 62045 11/09, ALEK A DoD A isted Exercises For ROM Assisted Exercises [place] ROM 40918 11/09, ALEK A DoD Physician Supervised Group Educational Services 11/02, ALEK A [facility] Physical Therapy Neuromuscular Re-education Physical Therapy Neuromuscular Re-education 76452 11/02, ALEK A DoD A isted Exercises For ROM Assisted Exercises For ROM 32007 11/02, ALEK A DoD Physician Supervised Group Educational Services 10/26, ALEK A [facility] Physical Therapy Neuromuscular Re-education Physical Therapy Neuromuscular Re-education 76617 10/26, ALEK A DoD A isted Exercises For ROM Assisted Exercises [place] ROM 48087 10/26, ALEK A [facility] Physical Therapy Neuromuscular Re-education Physical Therapy Neuromuscular Re-education 55933 10/19 BAKARI LEDBETTER [facility] Occupational Therapy Re-Evaluation Occupational Therapy Re-Evaluation 41367 10/19 BAKARI LEDBETTER [facility] Psychotherapy Individual Approximately 45 Minutes Psychotherapy Individual Approximately 45 Minutes 71446 10/19 [place] [facility] Case Management, each 15 minutes 09/13 KOLBY AYALA Coordinated care fee, maintenance rate 09/13 KOLBY AYALA Development Of Cognitive Skills By Compensatory Activities Development Of Cognitive Skills By Compensatory Activities 12377 09/07 EDMOND GONG MD Supervised Speech / Hearing Therapy 09/07 EDMOND GONG Case Management, each 15 minutes 09/05 NASH GEORGE Coordinated care fee, maintenance rate 09/05 NASH GEORGE Development Of Cognitive Skills By Compensatory Activities Development Of Cognitive Skills By Compensatory Activities 92136 09/04 EDMOND GONG MD Supervised Speech / Hearing Therapy 09/04 EDMOND GONG Ophthalmological Sensorimotor Exam Ophthalmological Sensorimotor Exam 39850 08/25 SANDEEP ATKINS Spectacles Services Fitting Monofocal Except For Aphakia Spectacles Services Fitting Monofocal Except For Aphakia 21593 08/25 SANDEEP ATKINS Determination Of Refractive State Determination Of Refractive State 36505 08/25 SANDEEP ATKINS Ophthalmological New Patient Start Comprehensive Care Ophthalmological New Patient Start Comprehensive Care 50168 08/25 SANDEEP ATKINS Psychometric Speech-Language Testing RIPA-2 Psychometric Speech-Language Testing RIPA-2 61733 08/23 EDMOND GONG [facility] Memory Test- 3rd edition [facility] Evaluation of Speech / Hearing Problem 08/23 EDMOND GONG Physical Medicine - Group Physical Therapy Se ion Physical Medicine - Group Physical Therapy Session 86608 08/22 KRISTINE GABRIEL [facility] Epidurography Epidurography 82871 08/18 BEULAH JAIME Fluoroscopic Guidance/Localiz Of Needle For Spinal Injection 08/18 BEULAH JAIME 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 08/18 BEULAH JAIME Clinical Social Work Individual Outpatient Counseling 45 Minutes Clinical Social Work Individual Outpatient Counseling 45 Minutes 85026 08/17 [place] Psychiatric Diagnostic Evaluation Comprehensive Examination Psychiatric Diagnostic Evaluation Comprehensive Examination 24292 08/17 [place] Physical Medicine - Group Physical Therapy Se ion Physical Medicine - Group Physical Therapy Session 65551 08/15 KRISTINE GABRIEL [facility] PT A e ment Kinetic Training PT Assessment Kinetic Training 21021 08/15ALEK Physician Supervised Group Educational Services Physician Supervised Group Educational Services 07655 08/15ALEK [facility] Case Management, each 15 minutes 08/09 NASH GEORGE Coordinated care fee, risk adjusted maintenance 08/09 NASH GEORGE Psychiatric Diagnostic Evaluation Review of Records and Reports Psychiatric Diagnostic Evaluation Review of Records and Reports 21093 08/09 [place] Development Of Cognit Skills By Sensory Integrative Techniques Development Of Cognit Skills By Sensory Integrative Techniques 48836 08/03 PETTY MARTINEZ [facility] Occupational Therapy Re-Evaluation Occupational Therapy Re-Evaluation 95438 08/03 PETTY MARTINEZ [facility] Physical Therapy: ___ Se ion Segments, 15 Minutes Each Physical Therapy: ___ Session Segments, 15 Minutes Each 98067 08/02 SWATHI DIAZ [facility] Vestibular Evaluation & Recording Computerized Dynamic Posturography 08/02 SWATHI DIAZ [facility] Physical Therapy Service Re-Evaluation Physical Therapy Service Re-Evaluation 04770 08/02 SWATHI DIAZ [facility] Psychometric Neuropsych Testing Battery Admin By Director Oracle Database Psychometric Neuropsych Testing Battery Admin By Director Oracle Database 07508 08/02 SCAR GIBBS [facility] Psychiatric Diagnostic Evaluation Comprehensive Examination Psychiatric Diagnostic Evaluation Comprehensive Examination 66576 08/02 SCAR GIBBS EEG Technique Digital Analysis EEG Technique Digital Analysis 48160 08/01 RAMÍREZ LY EEG Technique Exam Recording Awake And Drowsy EEG Technique Exam Recording Awake And Drowsy 10812 08/01 RAMÍREZ LY Physical Therapy Service Re-Evaluation Physical Therapy Service Re-Evaluation 04092 08/01 GABRIELA WOODS [facility] Foot, arch support, removable, premolded, longitudinal/metata rsal, each 07/27 BEULAH BAUTISTA [facility] Psychotherapy Group Interactive Psychotherapy Group Interactive 32125 07/26 [place] EEG Technique Digital Analysis EEG Technique Digital Analysis 64254 07/24 RAMÍREZ LY EEG Technique Exam Recording Awake And Drowsy EEG Technique Exam Recording Awake And Drowsy 95989 07/24 RAMÍREZ LY [facility] Physical Therapy: ___ Se ion Segments, 15 Minutes Each Physical Therapy: ___ Session Segments, 15 Minutes Each 09782 07/20 GABRIELA WOODS Ed on HEP x 10 min [facility] Physical Therapy Service Evaluation Physical Therapy Service Evaluation 67142 07/20 GABRIELA WOODS [facility] Hearing service, miscellaneous 07/14 CARRIE VASQUEZ [facility] Audiometry Group Testing Audiometry Group Testing 99482 07/14 CARRIE VASQUEZ [facility] Case Management, each 15 minutes 07/12 NASH GEORGE Coordinated care fee, maintenance rate 07/12 NASH GEORGE ENT Services Ears Melissa Maneuver ENT Services Ears Melissa Maneuver 62053 07/03 SWATHI DIAZ Vestibular Evaluation With Recording Of Positional Nystagmus Vestibular Evaluation With Recording Of Positional Nystagmus 34578 07/03 SWATHI DIAZ [facility] Physical Therapy Service Re-Evaluation Physical Therapy Service Re-Evaluation 10759 07/03 SWATHI DIAZ [facility] ENT Services Ears Melissa Maneuver ENT Services Ears Melissa Maneuver 71577 06/29 SWATHI DIAZ Vestibular Evaluation And Recording Of Spontaneous Nystagmus Vestibular Evaluation And Recording Of Spontaneous Nystagmus 13251 06/29 SWATHI DIAZ Vestibular Evaluation With Recording Of Positional Nystagmus Vestibular Evaluation With Recording Of Positional Nystagmus 38113 06/29 SWATHI DIAZ [facility] Physical Therapy Service Evaluation Physical Therapy Service Evaluation 90996 06/29 SWATHI DIAZ [facility] Psychometric Neurobehavioral Status Exam 06/29 ALIYAH DOMÍNGUEZ MMSE given and reviewed. 15 minutes spent. [facility] Clinical Social Work Individual Outpatient Counseling 75-80 Minutes Clinical Social Work Individual Outpatient Counseling 75-80 Minutes 40488 07/08 MARCUS MEYERS [facility] Threshold Audiogram (Pure Tone) Threshold Audiogram (Pure Tone) 03784 01/04 THANIA COHEN [facility] Screening Test Of Visual Acuity, Quantitative, Bilateral Screening Test Of Visual Acuity, Quantitative, Bilateral 43565 01/04 THANIA COHEN [facility] Electrocardiogram Electrocardiogram 23498 01/04 THANIA COHEN [facility] Physical Therapy: ___ Se ion Segments, 15 Minutes Each Physical Therapy: ___ Session Segments, 15 Minutes Each 73334 12/28 EFRAÍN CHAVEZ [facility] Physical Therapy: ___ Se ion Segments, 15 Minutes Each Physical Therapy: ___ Session Segments, 15 Minutes Each 29678 12/23 EFRAÍN CHAVEZ [facility] Modalities Cryotherapy Cold Packs Modalities Cryotherapy Cold Packs 75487 12/22 LENIN JAQUEZ [facility] Physical Therapy Mobilization Joint Physical Therapy Mobilization Joint 13617 12/22 LENIN JAQUEZ [facility] Physical Therapy: ___ Se ion Segments, 15 Minutes Each Physical Therapy: ___ Session Segments, 15 Minutes Each 15470 12/22 LENIN JAQUEZ [facility] Patient Counseling Medical Management Individual Patient Patient Counseling Medical Management Individual Patient 37759 12/21 YOLANDEMITCHELL ABI [facility] Physical Therapy Service Re-Evaluation Physical Therapy Service Re-Evaluation 95580 12/21 JESUS ABI [facility] Modalities Cryotherapy Cold Packs Modalities Cryotherapy Cold Packs 17016 11/10 EFRAÍN CHAVEZ [facility] Physical Therapy Mobilization Joint Physical Therapy Mobilization Joint 79215 11/10 EFRAÍN CHAVEZ [facility] Physical Medicine - Group Physical Therapy Se ion Physical Medicine - Group Physical Therapy Session 01024 11/10 EFRAÍN CHAVEZ [facility] Social History Combined list of available smoking, tobacco, and other social history from 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 Social History Type Response Date Comment [facility] e Tobacco smoking status [facility] VA-TOBACCO NEVER USED 06/06/2021 [facility] History of tobacco use VA-TOBACCO NEVER USED 11/29/2020 [facility] History of tobacco use VA-TOBACCO NEVER USED 09/19/2019 [facility] History of tobacco use LIFETIME NON-USER OF TOBACCO 05/01/2017 [facility] History of tobacco use LIFETIME NON-USER OF TOBACCO 12/14/2015 [facility] History of tobacco use ZZORYX TOBACCO NO N USER 07/29/2015 [facility] This section is an empty social history section. DoD Advance Directives List of completed, amended, or rescinded Advance Directives on record at Department of [facility] Affairs facilities. An actual copy of the Directive is not included. Date Advance Directive Provider Source 03/07/2016 ADVANCE DIRECTIVE ANKIT GARCIA [facility]
[2024-10-30 10:13] LABS: Basophils Percent Auto 0.5 % (0.2-1.2); Eosinophils Absolute Auto 0.3 K/mm3 (0-0.3); Eosinophils Percent Auto 3.2 % (0-4.4); Hematocrit 46.1 % (42.0-52.0); Hemoglobin 14.9 g/dL (14.0-18.0); Immature Granulocyte Absolute 0.06 K/mm3 (0.00-0.031); Immature Granulocyte Percent A 0.8 % (0-0.5); Lymphocytes Absolute Auto 1.78 K/mm3 (0.9-3.2); Lymphocytes Percent Auto 22.6 % (18.3-44.2); Mean Corpuscular HGB Conc 32.3 g/dl (32-36); Mean Corpuscular Volume 80.5 fl (80-100); Mean Platelet Volume 10.3 fl (7.4-10.4); Monocytes Absolute Auto 0.9 K/mm3 (0.1-0.6); Monocytes Percent Auto 11.2 % (2.6-8.5); Neutrophils Absolute Auto 4.9 K/mm3 (1.3-6.7); Neutrophils Percent Auto 61.7 % (45.5-73.1); Platelet Count Result 231 k/mm3 (150-375); Red Blood Count 5.73 M/mm3 (4.6-6.20); Red Cell Distribution Width 15.4 % (11.5-14.5); White Blood Count 7.9 K/mm3 (4.5-10.0)
[2024-10-30 10:37] LABS: Alanine Aminotransferase 62 U/L (6-50); Albumin Level 4.5 g/dL (3.5-5.1); Alkaline Phosphatase 76 U/L (38-126); Anion Gap 8 mmol/L (4-12); Aspartate Amino Transferase 30 U/L (17-59); Bilirubin,Total 0.6 mg/dL (0.2-1.3); Blood Urea Nitrogen 14 mg/dL (9-20); Calcium 9.6 mg/dL (8.4-10.2); Carbon Dioxide 29 mmol/L (22-30); Chloride 103 mmol/L (98-107); Cholesterol 210 mg/dL (0-200); Estimated Glomerular Filt Rate > 60; Glucose 110 mg/dL (65-110); HDL Direct 56 mg/dL; Potassium 4.4 mmol/L (3.4-5.0); Sodium 140 mmol/L (137-145); Triglycerides 87 mg/dL (<150)
[2024-10-30 10:48] LABS: LDL Cholesterol Direct 126 mg/dL
[2024-10-30 11:05] LABS: Free T4 Free Thyroxine 0.91 ng/dL (0.78-2.19); Vitamin D 25 Hydroxy 19.3 ng/mL
[2024-10-30 11:08] LABS: Prostate Specific Antigen 0.8 ng/mL (< OR = 4.0)
[2024-10-30 11:43] LABS: Folic Acid 4.3 ng/mL (2.76->20)
[2024-11-04 20:54] LABS: Testosterone Free 73.3 pg/mL (35.0-155.0); Testosterone Total 389 ng/dL (250-1100)
== END 2024-10-30 09:28 | disposition home or self-care (01) ==
LOC: ANHLAB 09:28
PROVIDERS: PCP Family Medicine; Visit Provider Nurse Practitioner Adult Health
DX: E03.9 Hypothyroidism, unspecified (principal); R79.89 Other specified abnormal findings of blood chemistry; R56.9 Unspecified convulsions; S06.9X1A Unspecified intracranial injury with loss of consciousness of 30 minutes or less, initial encounter; F43.10 Post-traumatic stress disorder, unspecified; E55.9 Vitamin D deficiency, unspecified; R53.82 Chronic fatigue, unspecified; Z87.820 Personal history of traumatic brain injury; Z12.5 Encounter for screening for malignant neoplasm of prostate; X58.XXXA Exposure to other specified factors, initial encounter
CPT/HCPCS: 36415; 80053; 80061; 82306; 82607; 82746; 84153; 84402; 84403; 84439; 84443; 85025; G0103